=== PATIENT | female | born 1975 | race Two or more races ===

== ENCOUNTER 2025-01-03 16:41 | Inpatient (IN) | payer MEDICAID, SELFPAY ==
[2025-01-03 16:42] VITALS: BMI 22.6
[2025-01-03 18:24] VITALS: BP 100/65; PULSE 102; RESP 18; TEMP 36.6; O2SAT 99; BMI 22.6
--- NOTE | 2025-01-03 18:32 | XR_ITS ---
Examination: Foot, left, 3 views Technique: AP, oblique, lateral views foot, 3 views Date and time of exam: 1906 hours INDICATIONS: Left foot redness swelling and pain beginning 3 days ago FINDINGS: Soft tissue swelling adjacent to the first metatarsophalangeal joint No fracture or No chyna cortical bone destruction IMPRESSION: No chyna cortical bone destruction Consider MRI foot without contrast follow up, as clinically warranted
--- NOTE | 2025-01-03 18:33 | EDRME_ITS ---
Rapid Medical Screening Exam [facility] Arrival date/time: 01/03/25 16:41 49F with history of drug use and DM presents to ED with worsening L foot wound that popped 2 days ago. Chief Complaint: Extremity Injury, Lower Vital signs: Vital Signs Temperature 97.9 F 01/03/25 18:24 Pulse Rate 102 H 01/03/25 18:24 Respiratory Rate 18 01/03/25 18:24 Blood Pressure 100/65 01/03/25 18:24 Pulse Oximetry (%) 99 01/03/25 18:24 Oxygen Delivery Method Room Air 01/03/25 18:24
[2025-01-03 19:11] LABS: Basophils % (Auto) 0 % (0-2.5); Eosinophils # (Auto) 0.1 Thou/mm3 (0.0-0.5); Eosinophils % (Auto) 1 % (0-10); Hemoglobin 15.4 g/dL (12.0-16.0); Immature Granulocytes % (Auto) 0 % (0-0); Immature Granulocytes Auto 0.04 Thou/mm3 (0.00-0.00); Lymphocytes # (Auto) 2.9 Thou/mm3 (1.0-4.8); Lymphocytes % (Auto) 24 % (10-50); Mean Corpuscular Hemoglobin 30.6 pg (25.0-35.0); Mean Corpuscular Volume 88 fL (80-100); Monocytes # (Auto) 0.9 Thou/mm3 (0.0-0.8); Monocytes % (Auto) 8 % (0-12); Neutrophils # (Auto) 8.1 Thou/mm3 (1.8-7.7); Neutrophils % (Auto) 67 % (37-80); Nucleated Red Blood Cell % 0 /100 WBC (0); Platelet Count 261 Thou/mm3 (140-440); RDW Standard Deviation 41.7 fL (36.4-46.3); Red Blood Count 5.03 Miln/mm3 (4.00-5.20); White Blood Count 12.1 Thou/mm3 (3.6-11.0)
[2025-01-03 19:52] LABS: Alanine Aminotransferase 8 U/L (10-49); Albumin, Serum 4.1 gm/dL (3.5-5.0); Albumin/Globulin Ratio 1.1 (1.2-2.2); Alkaline Phosphatase 137 U/L (46-116); Anion Gap 10 (7-16); Aspartate Amino Transferase 10 U/L (0-34); BUN/Creatinine Ratio 14 Ratio (12-20); Bilirubin,Total 0.4 mg/dL (0.3-1.2); Blood Urea Nitrogen 17 mg/dL (9-23); C-Reactive Protein 7.7 mg/dL (0.0-0.9); Calcium 9.4 mg/dL (8.3-10.6); Calcium (Corrected) 9.4 mg/dL (8.5-10.1); Carbon Dioxide 27.2 mMol/L (20.0-31.0); Chloride 90 mMol/L (98-107); Creatinine (Component) 1.2 mg/dL (0.6-1.3); Estimated Creatinine Clearance 48.4 mL/min (>60); Globulin 3.9 gm/dL (2.3-3.5); Osmolality,Calculated 286 (275-295); Potassium 4.8 mMol/L (3.4-5.1); Sed Rate (ESR) 109 mm/hr (0-30); Sodium 127 mMol/L (136-145); eGFR 55 See Note
[2025-01-03 19:53] LABS: Glucose 637 mg/dL (74-106)
[2025-01-03 20:25] VITALS: BP 136/98; PULSE 102; RESP 17; TEMP 36.6; O2SAT 99
--- NOTE | 2025-01-03 20:34 | EKG_ITS ---
[facility] Test Date: 2025-01-03 Pat Name: MANE MAYS Department: Room: - Gender: Female [employer] Head: : 1975 Requested By: Hailee Sandoval Order Number: [id number] Reading MD: Hailee Sandoval Measurements Intervals [place] Rate: 102 P: 34 ID: 128 QRS: 32 QRSD: 89 T: 54 QT: 343 QTc: 447 Interpretive Statements SINUS TACHYCARDIA POSSIBLE LEFT ATRIAL ENLARGEMENT [-0.1mV P-WAVE IN V1/V2] ABNORMAL RHYTHM ECG Compared to ECG 03/13/2023 07:28:48 Myocardial infarct finding no longer present /[id number].pdf
--- NOTE | 2025-01-03 20:34 | XR_ITS ---
Examination: PA lateral chest 2 views TECHNIQUE: Upright PA and lateral chest 2 views Exam date and time: January 03, 20252047 hours INDICATIONS: Diabetic ketoacidosis FINDINGS: Normal heart size Minor linear scarring left base No pneumonia or pulmonary edema Moderate diffuse thoracic lumbar degenerative disc disease IMPRESSION: No pneumonia or pulmonary edema
[2025-01-03] MEDS: RINGERS LACTATED 1000 ML 1,641 ML 1641 ML IV (21:03)
[2025-01-03] MEDS: PIPER/TAZO 3.375 GM PREMIX 3.375 GM/50 ML BAG IV (21:04)
[2025-01-03 21:06] LABS: Allen Test Performed/OK; Base Excess -1 (-3-3); HCO3 24 mEq/L (20-26); Inspired Oxygen, FIO2 21 %; O2 Saturation 94 % (91-98); PCO2 37 mmHg (32.0-48.0); PO2 67 mmHg (83-108); Puncture Site Left Radial; pH, Arterial 7.41 (7.35-7.45)
[2025-01-03] MEDS: INSULIN HUM REGULAR 1 UNIT/0.01 ML (PER UNIT) 10 UNIT IV (21:08)
[2025-01-03 21:13] LABS: B-Type Natriuretic Peptide < 20 pg/mL (0-100)
[2025-01-03 21:18] LABS: Beta Hydroxybutyrate 0.2 mmol/L (<0.6)
[2025-01-03 21:19] LABS: Lactate (Lactic Acid) 4.2 mMol/L (0.4-2.0)
[2025-01-03 21:28] LABS: Collection Type, Urine Clean Catch; RBC,Urine 0 /hpf (0-3); WBC,Urine 0 /hpf (0-5)
[2025-01-03 21:29] LABS: Partial Thromboplastin Time 25.4 Seconds (22.0-36.0)
[2025-01-03] MEDS: VANCOMYCIN in NS 1 GM/200 ML BAG IV (21:31)
[2025-01-03 21:37] LABS: Lipase 31 U/L (12-53); Magnesium 1.7 mg/dL (1.6-2.6); Troponin I < 0.002 ng/mL (0.0-0.045)
[2025-01-03 21:39] LABS: Bacteria,Urine Rare; Bilirubin,Urine Negative (Negative); Blood,Urine Negative (Negative); Clarity,Urine Clear (Clear/Hazy); Color,Urine Lt-Yellow (Lt Yel-Yel); Glucose, Urine 4+ (Negative); Ketones,Urine Negative (Negative); Leukocyte Esterase,Urine Negative (Negative); Nitrite,Urine Negative (Negative); Protein,Urine Trace (Neg - Trace); Specific Gravity,Urine 1.027 (1.001-1.035); Squamous Epithelial Cell,Urine 3 /hpf (0-5); Urobilinogen,Urine Negative mg/dL (0.0-1.0)
[2025-01-03 21:40] VITALS: PULSE 105
--- NOTE | 2025-01-03 22:16 | XR_ITS ---
Examination: CTA lower extremities with intravenous contrast 2-D reconstructions 3-D reconstructions, vascular Date and time of exam: January 04, 2025 0459 hours INDICATION: Redness swelling and pain involving the left foot and ankle beginning 4 days ago CTDI: vol (mGy) 1.79 DLP: (mGycm) 90.5 Technique: Multiple axial sections of the lower extremities, ankle and feet 2-D sagittal and coronal reconstructions. 3-D angiographic renderings, 3-D volume renderings, 3D post processing, vascular maximum intensity projections obtained. Contrast administered is 100 cc Isovue 370. Low dose protocols were performed. One or more of the following dose reduction techniques were used; automated exposure control, adjustment of the mA and/or KV according to patient size, use of iterative reconstruction technique. Findings: Very poor contrast opacification of the trifurcation arteries, which are heavily calcified. No chyna cortical bone destruction Edema surrounding the ankle and foot bilaterally greater on the left side No soft tissue abscess IMPRESSION: Severely limited study as above Consider repeat CTA abdominal aorta iliofemoral runoff with proper contrast bolus timing, also consider arterial Doppler lower extremities follow up
[2025-01-03 22:26] LABS: LDH (Lactate Dehydrogenase) 149 U/L (120-246); Procalcitonin 0.17 ng/ml (0.0-0.49)
[2025-01-03 22:44] VITALS: BP 136/95; PULSE 99; RESP 18; TEMP 36.7; O2SAT 97
[2025-01-04] VITALS (8 sets, daily range): BP systolic 114–128; BP diastolic 73–82; PULSE 71–99; RESP 16–96; TEMP 36.3–37.4; O2SAT 93–98; BMI 22.1
[2025-01-04 00:06] LABS: Reflex Lactate? Y
--- NOTE | 2025-01-04 00:55 | EDNOTE_ITS ---
ED General RME/HPI General Chief complaint: Extremity Injury, Lower Stated complaint: Left toe swelling, Hx: DM Time Seen by Provider: 01/03/25 19:41 Arrival date/time: 01/03/25 16:41 49 year old female with a past medical history of diabetes and drug abuse presents to the ED with a complaint of left foot swelling, redness, pain and left second toe wound. She states the left second toe was rubbing on her Vance tennis shoes. She is a known diabetic but has been noncompliant with medications for at least 2 years. She indicates she was having a hard time coping with the loss of multiple family members including her youngest son. She denies any fever or chills, nausea or vomiting, diarrhea or abdominal pain. She does have a history of diabetic neuropathy. Mode of arrival: ambulatory Limitations: no limitations RME / HPI RME / HPI narrative: 01/03/25 16:41 49F with history of drug use and DM presents to ED with worsening L foot wound that popped 2 days ago. Related Data Previous Rx's ?Medication ?Instructions ?Recorded atorvastatin 40 mg tablet 40 mg PO QPM #30 tabs blood-glucose meter,continuous #1 ea 01/07/25 (FreeStyle Fabien 3 Coleman) blood-glucose sensor (FreeStyle #2 ea 01/07/25 Fabien 3 Plus Sensor device) clopidogrel 75 mg tablet (Plavix) 75 mg PO QDAY 30 day s #30 tabs 01/07/25 insulin glargine 100 unit/mL (3 15 unit (0.15 mL) subc ut QPM 30 01/07/25 mL) subcutaneous pen days #4.5 mL insulin lispro 100 unit/mL 5 unit (0.05 mL) subcut TID 30 01/07/25 subcutaneous pen days #4.5 mL Allergies Allergy/AdvReac Type Severity Reaction Status Date / Time No Known Allergies Allergy Verified 01/05/25 15:36 Review of Systems Review of Systems Systems Reviewed: All systems reviewed, normal except as documented Past Medical History Past Medical History CARDIAC: Positive Hypertension; Negative Cardiac Disorders or Congestive Heart Failure RESPIRATORY: Negative Chronic Obstructive Pulmonary Disease (COPD) or Asthma GENITOURINARY: Negative Renal Disease ENDOCRINE: Positive Diabetes Mellitus Type 2; Negative Diabetes Mellitus Type 1 HEMATOLOGIC: Negative Sickle Cell Disease Social History SMOKING STATUS: Never smoker ED Exam General Limitations: Present no limitations General appearance: Present alert and in no apparent distress Head Head exam: Present atraumatic and normocephalic Eye Eye exam: Absent conjunctival injection ENT ENT exam: Present other (Edentulous) Neck Neck exam: Present normal inspection and trachea midline Chest Chest inspection: Present normal inspection and symmetric chest wall rise Respiratory Respiratory exam: Present normal lung sounds bilaterally; Absent respiratory distress Cardiovascular Cardiovascular exam: Present regular rate, normal rhythm, +S1 and +S2 Abdominal Exam Abdominal exam: Present soft and normal bowel sounds; Absent tenderness, guarding or rebound Rectal Exam Rectal exam: Present deferred Expanded Lower Extremity Exam Upper leg exam: Present normal inspection; Absent tenderness or swelling Knee exam: Present normal inspection and full ROM; Absent tenderness Lower leg exam: Present normal inspection; Absent tenderness Ankle exam: Present normal inspection; Absent tenderness Foot/toe exam: Present tenderness, swelling, erythema and other (Cellulitic type rash noted to the dorsal surface of the left foot with losing wound to the dorsal aspect of the left second toe. Discoloration noted with dusky appearance. Decreased range of motion secondary to pain and swelling. No foul odor noted.) Neurovascular/Tendon exam: Present sensory deficit; Absent motor deficit Back Exam Back exam: Present normal inspection; Absent tenderness, CVA tenderness (R) or CVA tenderness (L) Neurological Exam Neurological exam: Present alert and oriented X3 Skin Skin exam: Present warm, dry, rash, cyanosis and erythema Course Quality Measures Possible source: skin/soft tissue and wound Blood cultures ordered: yes Antibiotic ordered: Yes Pertinent labs: 01/03/25 01/04/25 20:58 00:34 Lactic Acid 4.2 H* mMol/L 1.0 mMol/L (0.4-2.0) (0.4-2.0) Procalcitonin 0.17 ng/ml (0.0-0.49) sepsis Orders Category Date Time Status CT Screening NOW Care 01/03/25 22:17 Completed Surgical Supplies Sterilizer STAT Care 01/03/25 20:34 Completed Continuous Pulse Oximetry STAT Care 01/03/25 20:34 Completed Decision to Admit X1 Care 01/04/25 00:59 Completed EKG (ED ONLY) *Do not use* NOW Care 01/03/25 20:34 Completed In and Out Catheter X1PRN Care 01/03/25 20:34 Completed Insert IV NOW Care 01/03/25 20:34 Completed NPO STAT Care 01/03/25 20:34 Completed Strict Intake and Output Routine Care 01/03/25 20:[address] angio LE LT Stat Exams 01/03/25 22:16 Completed EKG (ED Only) Stat Exams 01/03/25 20:34 Draft XR chest 2V Stat Exams 01/03/25 20:34 Completed XR foot comp LT min 3V Stat Exams 01/03/25 18:32 Completed Acetone [Beta Hydroxybutyrate] Stat Lab 01/03/25 20:58 Completed Arterial Blood Gas Stat Lab 01/03/25 21:00 Completed B-Type Natriuretic Peptide Stat Lab 01/03/25 18:47 Completed Blood Culture (Lab) Stat Lab 01/03/25 20:58 Completed CBC Stat Lab 01/03/25 18:47 Completed CMP [Comprehensive Metabolic Panel] Stat Lab 01/03/25 18:47 Completed CRP [C-Reactive Protein] Stat Lab 01/03/25 18:47 Completed ESR [Sed Rate (ESR)] Stat Lab 01/03/25 18:47 Completed LDH (Lactate Dehydrogenase) Stat Lab 01/03/25 20:58 Completed Lactate (Lactic Acid) Stat Lab 01/03/25 20:58 Completed Lactic Acid, 3 HR Stat Lab 01/04/25 00:34 Completed Lipase Stat Lab 01/03/25 20:58 Completed Magnesium Stat Lab 01/03/25 20:58 Completed Partial Thromboplastin Time Stat Lab 01/03/25 18:47 Completed Phosphorous Stat Lab 01/03/25 20:58 Completed Procalcitonin Stat Lab 01/03/25 20:58 Completed Prothrombin Time with INR Stat Lab 01/03/25 18:47 Completed Troponin I Stat Lab 01/03/25 20:58 Completed Urinalysis Stat Lab 01/03/25 21:21 Completed Urine Culture Stat Lab 01/03/25 21:21 Completed Wound Culture and Gram Stain Stat Lab 01/03/25 20:58 Completed Insulin Regular Med 01/03/25 20:53 Discontinued 10 unit IV X1 ONE Ondansetron Inj [Zofran Inj] Med 01/03/25 20:33 Discontinued 4 mg IV Q6HR PRN Piper/Tazo 3.375 gm Premix [Zosyn] Med 01/03/25 20:33 Discontinued 3.375 gm in 50 ml IV X1 Ringers Lactated 1000 ml [Lactated Ringers] 1,641 ml Med 01/03/25 20:33 Discontinued IV 1,641 mls/hr Vancomycin Pharmacy to Dose Med 01/04/25 09:00 Discontinued 1 each IV QDAY PRN Vancomycin/Ns 1 gm Ivpb Med 01/03/25 21:00 Discontinued 1 gm IV X1 ONE Oxygen Delivery NOW RT 01/03/25 20:34 Completed Vital Signs Vital signs: Vital Signs Temperature 97.9 F 01/03/25 18:24 Pulse Rate 102 H 01/03/25 18:24 Respiratory Rate 18 01/03/25 18:24 Blood Pressure 100/65 01/03/25 18:24 Pulse Oximetry (%) 99 01/03/25 18:24 Oxygen Delivery Method Room Air 01/03/25 18:24 [facility] Patient data External records reviewed:: None Clinical information provided by:: patient and family Social determinants that could affect healthcare access:: mental health Patient has the following chronic illnesses:: Hypertension, type 2 diabetes. How is presenting disease/condition affected by chronic disease/condition?: e xacerbated by Evaluation data The following diagnostics were reviewed and interpreted by me:: lab results, radiology exam(s) and EKG tracing(s) Lab and/or radiology exams considered but not ordered:: MRI Left Foot/Toes Interpretation Summary: FOOT XRAY: FINDINGS: Soft tissue swelling adjacent to the first metatarsophalangeal joint No fracture or No chyna cortical bone destruction IMPRESSION: No chyna cortical bone destruction Consider MRI foot without contrast follow up, as clinically warranted CXR: FINDINGS: Normal heart size Minor linear scarring left base No pneumonia or pulmonary edema Moderate diffuse thoracic lumbar degenerative disc disease IMPRESSION: No pneumonia or pulmonary edema Medications Medications considered but not ordered:: NONE Medication administrations:: Medication Administration History Discontinued Medications Acetaminophen (Acetaminophen 325 Mg Tablet) 650 mg PO Q6H PRN PRN Reason: Fever >100.3 or pain 1-3 Stop: 02/03/25 01:24 Last Admin: 01/06/25 21:27 Dose: 650 mg Documented By: CV Atorvastatin Calcium (Atorvastatin Calcium 20 Mg Tablet) 20 mg PO HS KATALINA Stop: 02/04/25 20:59 Last Admin: 01/06/25 21:26 Dose: 20 mg Documented By: Admin: 01/05/25 20:49 Dose: 20 mg Documented By: CV Clopidogrel Bisulfate (Clopidogrel Bisulfate 75 Mg Tablet) 75 mg PO QDAY [facility] Stop: 02/05/25 08:59 Last Admin: 01/07/25 08:50 Dose: 75 mg Documented By: Admin: 01/06/25 09:58 Dose: 75 mg Documented By: ASIYA Dextrose (Dextrose 50%-Water Inj 50 Ml Syringe) 25 ml IV Q15MIN PRN PRN Reason: BG 50-70 responsive npo pt Stop: 02/03/25 01:28 Dextrose (Dextrose 50%-Water Inj 50 Ml Syringe) 50 ml IV Q15MIN PRN PRN Reason: BG <50 OR BG <70 & pt unresponsive Stop: 02/03/25 01:28 Fentanyl Citrate (Fentanyl Cit Inj 50 Mcg/Ml Amp 2ml) 25 mcg IV Q5M PRN PRN Reason: PAIN SCALE 1-3 (mild Stop: 01/05/25 16:43 Glucagon (Glucagon Inj 1 Mg Vial) 1 mg IM Q15MIN PRN PRN Reason: BG <70, and no IV access Heparin Sodium (Porcine) (Heparin Sod Inj 5000 Unit/Ml Vial) 5,000 unit SC Q8HR [facility] Stop: 01/18/25 05:59 Last Admin: 01/07/25 05:27 Dose: 5,000 unit Documented By: GELA Co-signed By: JIMMY Admin: 01/06/25 21:26 Dose: 5,000 unit Documented By: GELA Co-signed By: MARISOL Admin: 01/06/25 14:02 Dose: 5,000 unit Documented By: ASIYA Co-signed By: RAVI Admin: 01/06/25 05:34 Dose: 5,000 unit Documented By: GELA Co-signed By: MADHAVI Admin: 01/05/25 22:18 Dose: 5,000 unit Documented By: GELA Co-signed By: MADHAVI Admin: 01/05/25 16:18 Dose: Not Given Documented By: KS Non-Admin Reason: Held for Procedure Admin: 01/05/25 05:43 Dose: 5,000 unit Documented By: RAYMOND Co-signed By: SOFIA Admin: 01/04/25 21:11 Dose: 5,000 unit Documented By: RAYMOND Co-signed By: SOFIA Admin: 01/04/25 15:28 Dose: 5,000 unit Documented By: BF Co-signed By: VIKRAM Admin: 01/04/25 05:59 Dose: 5,000 unit Documented By: Co-signed By: MOHSEN Hydromorphone HCl (Hydromorphone Inj 2 Mg/Ml Vial) 0.4 mg IV Q5M PRN PRN Reason: PAIN SCALE 7-10 (Severe Stop: 01/05/25 16:44 Lactated Ringer's (Lactated Ringers) 1,641 mls @ 1,641 mls/hr 30 ml/kg infuse over 60 min (1641 ml) IV .Q1H ONE Stop: 01/03/25 21:32 Last Infusion: 01/03/25 23:42 Dose: Infused Documented By: Admin: 01/03/25 21:03 Dose: 1,641 mls/hr Documented By: MAX Piperacillin/Tazobactam/Dextrose (Zosyn) 3.375 gm in 50 mls @ 100 mls/hr IV X1 ONE Stop: 01/03/25 21:02 Last Infusion: 01/03/25 23:42 Dose: Infused Documented By: Admin: 01/03/25 21:04 Dose: 100 mls/hr Documented By: MAX Piperacillin/Tazobactam/Dextrose (Zosyn) 3.375 gm in 50 mls @ 12.5 mls/hr IV Q8HR [facility]; Protocol Stop: 01/11/25 06:59 Last Admin: 01/07/25 05:27 Dose: 12.5 mls/hr Documented By: Infusion: 01/07/25 01:26 Dose: Infused Documented By: Admin: 01/06/25 21:26 Dose: 12.5 mls/hr Documented By: Infusion: 01/06/25 18:01 Dose: Infused Documented By: Admin: 01/06/25 14:01 Dose: 12.5 mls/hr Documented By: Infusion: 01/06/25 09:34 Dose: Infused Documented By: Admin: 01/06/25 05:34 Dose: 12.5 mls/hr Documented By: Infusion: 01/06/25 02:19 Dose: Infused Documented By: Admin: 01/05/25 22:19 Dose: 12.5 mls/hr Documented By: Infusion: 01/05/25 20:40 Dose: Infused Documented By: Admin: 01/05/25 16:40 Dose: 12.5 mls/hr Documented By: DRE Comments: patient in surgery Infusion: 01/05/25 09:39 Dose: Infused Documented By: Admin: 01/05/25 05:39 Dose: 12.5 mls/hr Documented By: Infusion: 01/05/25 01:01 Dose: Infused Documented By: Admin: 01/04/25 21:01 Dose: 12.5 mls/hr Documented By: Infusion: 01/04/25 19:22 Dose: Infused Documented By: Admin: 01/04/25 15:22 Dose: 12.5 mls/hr Documented By: Infusion: 01/04/25 11:39 Dose: Infused Documented By: Admin: 01/04/25 07:39 Dose: 12.5 mls/hr Documented By: RO Vancomycin/Sodium Chloride (Vancomycin/Ns 500 Mg Ivpb) 100 mls @ 120 mls/hr IV Q12HR@1000,2200 [facility] Stop: 01/11/25 09:59 Last Admin: 01/04/25 21:03 Dose: 120 mls/hr Documented By: Infusion: 01/04/25 11:41 Dose: Infused Documented By: Admin: 01/04/25 10:51 Dose: 120 mls/hr Documented By: RO Magnesium Sulfate (Magnesium Sulfate Ivpb) 4 gm in 50 mls @ 12.5 mls/hr IV X1 ONE Stop: 01/04/25 12:11 Last Admin: 01/04/25 09:10 Dose: 12.5 mls/hr Documented By: RO Vancomycin/Sodium Chloride (Vancomycin/Ns 750 Mg Ivpb) 750 mg in 150 mls @ 120 mls/hr IV BID@1000,2200 KATALINA; Protocol Stop: 01/12/25 11:44 Last Admin: 01/06/25 23:45 Dose: 120 mls/hr Documented By: Infusion: 01/06/25 11:14 Dose: Infused Documented By: Admin: 01/06/25 09:59 Dose: 120 mls/hr Documented By: Infusion: 01/05/25 22:58 Dose: Infused Documented By: Admin: 01/05/25 21:43 Dose: 120 mls/hr Documented By: Infusion: 01/05/25 14:13 Dose: Infused Documented By: Admin: 01/05/25 12:58 Dose: 120 mls/hr Documented By: LEEANN Vancomycin/Sodium Chloride (Vancomycin/Ns 750 Mg Ivpb) 750 mg in 150 mls @ 120 mls/hr IV TID KATALINA; Protocol Stop: 01/14/25 06:29 Last Admin: 01/07/25 08:50 Dose: 120 mls/hr Documented By: RUY Comments: Late delivery from Pharmacy Magnesium Sulfate (Magnesium Sulfate Ivpb) 4 gm in 50 mls @ 12.5 mls/hr IV X1 ONE Stop: 01/07/25 12:47 Last Admin: 01/07/25 09:40 Dose: 12.5 mls/hr Documented By: RUY Insulin Glargine (Insulin Glargine (Lantus) 5 Unit/0.05 Ml (Per 5 Units)) 10 unit SC [facility] Stop: 02/03/25 20:59 Last Admin: 01/05/25 20:50 Dose: 10 unit Documented By: GELA Co-signed By: MADHAVI Admin: 01/04/25 21:09 Dose: 10 unit Documented By: RAYMOND Co-signed By: SOFIA Insulin Glargine (Insulin Glargine (Lantus) 5 Unit/0.05 Ml (Per 5 Units)) 15 unit SC HS [facility] Stop: 02/05/25 20:59 Last Admin: 01/06/25 21:26 Dose: 15 unit Documented By: GELA Co-signed By: MARISOL Insulin Human Lispro (Insulin Lispro (Admelog) 1 Unit/0.01 Ml Unit) 0 unit SC AC [facility]; Protocol Stop: 02/03/25 07:29 Last Admin: 01/07/25 11:42 Dose: 5 unit Documented By: CHAD Co-signed By: NEFTALY Admin: 01/07/25 07:36 Dose: 4 unit Documented By: RUY Co-signed By: RO Admin: 01/06/25 18:22 Dose: 4 unit Documented By: RO Co-signed By: KENDALL Admin: 01/06/25 12:35 Dose: 5 unit Documented By: RO Co-signed By: RUY Admin: 01/06/25 08:02 Dose: 5 unit Documented By: ASIYA Co-signed By: RAVI Admin: 01/05/25 17:37 Dose: Not Given Documented By: KS Non-Admin Reason: patient sleeping not hungry Admin: 01/05/25 11:11 Dose: Not Given Documented By: KS Non-Admin Reason: NPO Admin: 01/05/25 07:30 Dose: Not Given Documented By: KS Non-Admin Reason: NPO Admin: 01/04/25 17:42 Dose: 5 unit Documented By: RO Co-signed By: ALIN Admin: 01/04/25 12:11 Dose: 5 unit Documented By: RO Co-signed By: VIKRAM Admin: 01/04/25 08:11 Dose: 5 unit Documented By: RO Co-signed By: VIKRAM Insulin Human Regular (Insulin Hum Regular 1 Unit/0.01 Ml (Per Unit)) 10 unit IV X1 ONE Stop: 01/03/25 20:54 Last Admin: 01/03/25 21:08 Dose: 10 unit Documented By: MAX Co-signed By: JOE Midazolam HCl (Midazolam Inj 1 Mg/Ml Vial 2 Ml) Confirm Administered Dose 2 mg .ROUTE .STK-MED ONE Stop: 01/05/25 14:18 Morphine Sulfate (Morphine Sulf Inj 10 Mg/Ml Vial) 3 mg IV Q5M PRN PRN Reason: PAIN SCALE 4-6 (Moderate Stop: 01/05/25 16:44 Morphine Sulfate (Morphine Sulf Inj 10 Mg/Ml Vial) 2 mg IVP X1 ONE Stop: 01/06/25 14:23 Last Admin: 01/06/25 14:29 Dose: 2 mg Documented By: RO Ondansetron HCl (Ondansetron Inj 2 Mg/Ml Inj 2 Ml) 4 mg IV Q6HR PRN PRN Reason: NAUSEA OR VOMITING Stop: 02/02/25 20:32 Ondansetron HCl (Ondansetron Inj 2 Mg/Ml Inj 2 Ml) 4 mg IV X1 ONE Stop: 01/05/25 14:44 Pharmacy Consult (Vancomycin Pharmacy To Dose 1 Each Each) 1 each IV QDAY PRN PRN Reason: CONSULT Stop: 02/03/25 08:59 Propofol (Propofol Inj 10 Mg/Ml Vial 20 Ml) Confirm Administered Dose 200 mg IV .STK-MED ONE Stop: 01/05/25 14:18 Ropivacaine (Ropivacaine Inj 0.5% 5 Mg/Ml Amp 20 Ml) Confirm Administered Dose 100 mg .ROUTE .STK-MED ONE Stop: 01/05/25 14:18 Sennosides (Senna Tablet) 1 tab PO QDAY PRN; Protocol PRN Reason: constipation Stop: 02/03/25 01:24 Vancomycin/Sodium Chloride (Vancomycin In Ns 1 Gm/200 Ml Bag) 1 gm IV X1 ONE Stop: 01/03/25 21:01 Last Admin: 01/03/25 21:31 Dose: 1 gm Documented By: SF As noted above Consultations Consultation(s) initiated? (list below): Yes Consultation #1 (Physician, Specialty, Details): RESIDENT SERVICE AGREES TO ADMIT. Diagnosis Differential Diagnosis ED Complaint MDM: Diabetic ketoacidosis, hyperosmolar nonketotic, sepsis, gangrene, osteomyel Most likely diagnosis given after review of the tests above:: Hyperosmolar nonketotic, sepsis, cellulitis, concern for osteomyelitis. Admission Indicated Admission indicated?: indicated Explain why admission is indicated or not indicated:: Left second toe probable wet gangrene with possible osteomyelitis and hyperosmolar nonketotic Admission Request Was there a request for admission?: Yes Admission Attestation Admission request attestation: Discussed case with [] from Hospitalist service regarding admission. Discussed patients ED course, exam findings, labs, and radiology results. The Hospitalist [agrees,declines] to accept the patient for admission. Disposition Plan Disposition Plan: Admit Medical Decision Making MDM Narrative MDM Narrative: 49 year old female with a past medical history of diabetes and drug abuse presents to the ED with a complaint of left foot swelling, redness, pain and left second toe wound. She states the left second toe was rubbing on her Vance tennis shoes. She is a known diabetic but has been noncompliant with medications for at least 2 years. She indicates she was having a hard time coping with the loss of multiple family members including her youngest son. She denies any fever or chills, nausea or vomiting, diarrhea or abdominal pain. She does have a history of diabetic neuropathy. On exam, 49-year-old female appears disheveled and mildly toxic. She is afebrile and mildly tachycardic at 102 with a blood pressure of 100/65. Exam reveals left foot swelling, erythema, warmth, tenderness to the dorsal aspect as well of left second toe oozing wound with discoloration and possible wet gangrene. CBC reveals an elevated white count of 12.1 with elevated ANC of 8.1, lactic acid 4.2, procalcitonin 0.17, LDH 149, troponin less than 0.002, sed rate 109, CRP 7.7, ABG is essentially normal with the exception of a PaO2 of 67, CMP reveals sodium 127, chloride 90 creatinine 1.2 with normal osmolality of 286. Repeat lactic acid was 1.0 after sepsis fluids initiated. Initial glucose of 637, again she was given sepsis fluids as well as 10 units of insulin IV. Repeat blood sugar 299. Left foot x-rays reveal no obvious cortical disruption of the left second toe. A CT of the left foot was ordered and is currently pending. MRI is currently unavailable at this time. Chest x-ray, no acute process. She was given sepsis fluids as well as Zosyn 3.375 and vancomycin (pharmacy to dose). Differential Diagnosis Differential Diagnosis: Diabetic ketoacidosis, hyperosmolar nonketotic, sepsis, gangrene, osteomyel Lab Data Lab results reviewed: Yes I reviewed the patient's lab results. Lab results narrative: CBC reveals an elevated white count of 12.1 with elevated ANC of 8.1, lactic acid 4.2, procalcitonin 0.17, LDH 149, troponin less than 0.002, sed rate 109, CRP 7.7, ABG is essentially normal with the exception of a PaO2 of 67, CMP reveals sodium 127, chloride 90 creatinine 1.2 with normal osmolality of 286. Repeat lactic acid was 1.0 after sepsis fluids initiated. Initial glucose of 637, again she was given sepsis fluids as well as 10 units of insulin IV. Repeat blood sugar 299. 01/06/25 04:07 01/06/25 04:07 Labs: Lab Results 01/03/25 01/03/25 01/03/25 Range/Units 18:47 20:58 21:00 WBC 12.1 H (3.6-11.0) Thou/mm3 RBC 5.03 (4.00-5.20) Miln/mm3 Hgb 15.4 (12.0-16.0) g/dL Hct 44.0 (36.0-46.0) % MCV 88 (80-100) fL MCH 30.6 (25.0-35.0) pg MCHC 35.0 (31.0-37.0) g/dl RDW Std Deviation 41.7 (36.4-46.3) fL Plt Count 261 (140-440) Thou/mm3 Neut % (Auto) 67 (37-80) % Lymph % (Auto) 24 (10-50) % Frederick % (Auto) 8 (0-12) % Eos % (Auto) 1 (0-10) % Baso % (Auto) 0 (0-2.5) % Neut # (Auto) 8.1 H (1.8-7.7) Thou/mm3 Lymph # (Auto) 2.9 (1.0-4.8) Thou/mm3 Frederick # (Auto) 0.9 H (0.0-0.8) Thou/mm3 Eos # (Auto) 0.1 (0.0-0.5) Thou/mm3 Baso # (Auto) 0.0 (0.0-0.2) Thou/mm3 Immature Gran # (Auto) 0.04 H (0.00-0.00) Thou/mm3 Absolute Nucleated RBC 0.00 (0.00-0.00) Thou/mm3 Immature Gran % 0 (0-0) % Nucleated RBC % 0 (0) /100 WBC ESR 109 H (0-30) mm/hr PT 10.0 (9.0-12.2) Seconds INR 1.0 (0.9-1.3) APTT 25.4 (22.0-36.0) Seconds Puncture Site Left Radial ABG pH 7.41 (7.35-7.45) ABG pCO2 37 (32.0-48.0) mmHg ABG pO2 67 L (83-108) mmHg ABG HCO3 24 (20-26) mEq/L ABG O2 Saturation 94 (91-98) % ABG Base Excess -1 (-3-3) FiO2 21 % Sodium 127 L (136-145) mMol/L Potassium 4.8 (3.4-5.1) mMol/L Chloride 90 L (98-107) mMol/L Carbon Dioxide 27.2 (20.0-31.0) mMol/L Anion Gap 10 (7-16) BUN 17 (9-23) mg/dL Creatinine 1.2 (0.6-1.3) mg/dL Estim Creat Clear Calc 48.4 L (>60) mL/min eGFR 55 L (60 - ) See Note BUN/Creatinine Ratio 14 (12-20) Ratio Glucose 637 H* (74-106) mg/dL Calculated Osmolality 286 (275-295) Lactic Acid 4.2 H* (0.4-2.0) mMol/L Calcium 9.4 (8.3-10.6) mg/dL Corrected Calcium 9.4 (8.5-10.1) mg/dL Phosphorus 4.0 (2.4-5.1) mg/dL Magnesium 1.7 (1.6-2.6) mg/dL Total Bilirubin 0.4 (0.3-1.2) mg/dL AST 10 (0-34) U/L ALT 8 L (10-49) U/L Alkaline Phosphatase 137 H (46-116) U/L Lactate Dehydrogenase 149 (120-246) U/L Troponin I < 0.002 (0.0-0.045) ng/mL C-Reactive Prot, Quant 7.7 H (0.0-0.9) mg/dL B-Natriuretic Peptide < 20 (0-100) pg/mL Total Protein 8.0 (5.7-8.2) gm/dL Albumin 4.1 (3.5-5.0) gm/dL Globulin 3.9 H (2.3-3.5) gm/dL Albumin/Globulin Ratio 1.1 L (1.2-2.2) Triglycerides (30-150) mg/dL Cholesterol (132-200) mg/dL LDL Cholesterol, Calc (0-130) mg/dL HDL Cholesterol (40-60) mg/dL Cholesterol/HDL Ratio (3.7-5.6) RATIO Lipase 31 (12-53) U/L Beta-Hydroxybutyrate/Acetoacetate 0.2 (<0.6) mmol/L Procalcitonin 0.17 (0.0-0.49) ng/ml HCG, Qual Ur Collection Type Urine Color (Lt Yel-Yel) Urine Clarity (Clear/Hazy) Urine pH (5.0-7.0) Ur Specific [place] (1.001-1.035) Urine Protein (Neg - Trace) Urine Glucose (UA) (Negative) Urine Ketones (Negative) Urine Blood (Negative) Urine Nitrite (Negative) Urine Bilirubin (Negative) Urine Urobilinogen (Auto) (0.0-1.0) mg/dL Ur Leukocyte Esterase (Negative) Urine RBC (0-3) /hpf Urine WBC (0-5) /hpf Ur Squamous Epith Cells (0-5) /hpf Urine Bacteria (None) Urine Opiates Screen (Negative) Urine Fentanyl Screen (Negative) Ur Barbiturates Screen (Negative) U Amphetamin/Meth Scrn (Negative) U Benzodiazepines Scrn (Negative) U Cocaine Metab Screen (Negative) U Marijuana (THC) Screen (Negative) 01/03/25 01/04/25 01/04/25 Range/Units 21:21 00:00 00:34 WBC (3.6-11.0) Thou/mm3 RBC (4.00-5.20) Miln/mm3 Hgb (12.0-16.0) g/dL Hct (36.0-46.0) % MCV (80-100) fL MCH (25.0-35.0) pg MCHC (31.0-37.0) g/dl RDW Std Deviation (36.4-46.3) fL Plt Count (140-440) Thou/mm3 Neut % (Auto) (37-80) % Lymph % (Auto) (10-50) % Frederick % (Auto) (0-12) % Eos % (Auto) (0-10) % Baso % (Auto) (0-2.5) % Neut # (Auto) (1.8-7.7) Thou/mm3 Lymph # (Auto) (1.0-4.8) Thou/mm3 Frederick # (Auto) (0.0-0.8) Thou/mm3 Eos # (Auto) (0.0-0.5) Thou/mm3 Baso # (Auto) (0.0-0.2) Thou/mm3 Immature Gran # (Auto) (0.00-0.00) Thou/mm3 Absolute Nucleated RBC (0.00-0.00) Thou/mm3 Immature Gran % (0-0) % Nucleated RBC % (0) /100 WBC ESR (0-30) mm/hr PT (9.0-12.2) Seconds INR (0.9-1.3) APTT (22.0-36.0) Seconds Puncture Site ABG pH (7.35-7.45) ABG pCO2 (32.0-48.0) mmHg ABG pO2 (83-108) mmHg ABG HCO3 (20-26) mEq/L ABG O2 Saturation (91-98) % ABG Base Excess (-3-3) FiO2 % Sodium (136-145) mMol/L Potassium (3.4-5.1) mMol/L Chloride (98-107) mMol/L Carbon Dioxide (20.0-31.0) mMol/L Anion Gap (7-16) BUN (9-23) mg/dL Creatinine (0.6-1.3) mg/dL Estim Creat Clear Calc (>60) mL/min eGFR (60 - ) See Note BUN/Creatinine Ratio (12-20) Ratio Glucose (74-106) mg/dL Calculated Osmolality (275-295) Lactic Acid 1.0 (0.4-2.0) mMol/L Calcium (8.3-10.6) mg/dL Corrected Calcium (8.5-10.1) mg/dL Phosphorus (2.4-5.1) mg/dL Magnesium (1.6-2.6) mg/dL Total Bilirubin (0.3-1.2) mg/dL AST (0-34) U/L ALT (10-49) U/L Alkaline Phosphatase (46-116) U/L Lactate Dehydrogenase (120-246) U/L Troponin I (0.0-0.045) ng/mL C-Reactive Prot, Quant (0.0-0.9) mg/dL B-Natriuretic Peptide (0-100) pg/mL Total Protein (5.7-8.2) gm/dL Albumin (3.5-5.0) gm/dL Globulin (2.3-3.5) gm/dL Albumin/Globulin Ratio (1.2-2.2) Triglycerides 211 H (30-150) mg/dL Cholesterol 174 (132-200) mg/dL LDL Cholesterol, Calc 91 (0-130) mg/dL HDL Cholesterol 41 (40-60) mg/dL Cholesterol/HDL Ratio 4.2 (3.7-5.6) RATIO Lipase (12-53) U/L Beta-Hydroxybutyrate/Acetoacetate (<0.6) mmol/L Procalcitonin (0.0-0.49) ng/ml HCG, Qual Negative Ur Collection Type Clean Catch Urine Color Lt-Yellow (Lt Yel-Yel) Urine Clarity Clear (Clear/Hazy) Urine pH 6.0 (5.0-7.0) Ur Specific [place] 1.027 (1.001-1.035) Urine Protein Trace (Neg - Trace) Urine Glucose (UA) 4+ A (Negative) Urine Ketones Negative (Negative) Urine Blood Negative (Negative) Urine Nitrite Negative (Negative) Urine Bilirubin Negative (Negative) Urine Urobilinogen (Auto) Negative (0.0-1.0) mg/dL Ur Leukocyte Esterase Negative (Negative) Urine RBC 0 (0-3) /hpf Urine WBC 0 (0-5) /hpf Ur Squamous Epith Cells 3 (0-5) /hpf Urine Bacteria Rare (None) Urine Opiates Screen Negative (Negative) Urine Fentanyl Screen Negative (Negative) Ur Barbiturates Screen Negative (Negative) U Amphetamin/Meth Scrn Positive A (Negative) U Benzodiazepines Scrn Negative (Negative) U Cocaine Metab Screen Negative (Negative) U Marijuana (THC) Screen Negative (Negative) Radiology Data Radiology results reviewed: Yes I reviewed the patient's radiology results. Radiology results narrative: Left foot x-rays reveal no obvious cortical disruption of the left second toe. A CT of the left foot was ordered and is currently pending. MRI is currently unavailable at this time. Chest x-ray, no acute process. Discharge Plan Plan Patient Disposition: Admit Acute Care w/in Hospital Disposition Comment: Stable and improved. Patient condition on transfer: Stable Problem List Clinical Impression: Diabetic foot, Hyperglycemia without ketosis, Hyperosmolar hyperglycemic state (HHS), Cellulitis Patient/Caregiver Discharge Instructions Discharge Activity: activity as tolerated Other Activity Instructions:: Take clindamycin 300 mg every 6 hours for 5 days to complete treatment for your infection. Continue atorvastatin and Plavix daily for peripheral arterial disease. Follow- up with vascular surgery. Take insulin Lantus 15 units every night and lispro 5 units 3 times a day with meals Follow-up with primary care physician in 1 week Follow-up with primary care physician in 1 week to optimize diabetes regimen. You can also follow-up in [facility] in 1 to 2 weeks. Call [phone] to make an appointment Address: [facility], [address], [address], [place], [address] Return to ED if symptoms return or worsen. Diet Instructions: Low carbohydrate diet PA/RN IMMUNOLOGY Supervising Physician PA/RN IMMUNOLOGY Supervising Physician: Dr Libia THOMAS Attestation Attestation I took over the care from MIRA Garcia at 11 PM on 01/03/25, see her note for complete H&P and ED course. Diagnoses include left foot cellulitis. I discussed the case with our hospitalist. About the presentation and exam and diagnostics and treatments here. And need of further care in the hospital. Will accept the patient. Brigido Reza MD
--- NOTE | 2025-01-04 01:39 | XR_ITS ---
Examination: Arterial duplex lower extremity study. Date and time of exam: January 04, 2025 0536 hours INDICATIONS: Left foot swelling beginning 2 days ago Findings: Duplex sonographic imaging of the lower extremity arteries using B-mode/Alberto scale imaging and Doppler spectral analysis and color flow. . Right common femoral artery demonstrates triphasic flow. Right superficial femoral artery demonstrates triphasic flow. Right popliteal artery demonstrates triphasic flow. Right posterior tibial artery demonstrated triphasic flow. Left common femoral artery demonstrates biphasic flow. Left superficial femoral artery demonstrates triphasic flow. Left popliteal artery demonstrates triphasic flow. Left posterior tibial artery demonstrated monophasic flow. Impression: Incomplete study No ankle-brachial indices, this patient should return for ankle brachial indices Left lower extremity peripheral obstructive arterial disease, recommend correlation with CTA abdominal aorta iliofemoral runoff post intravenous contrast
--- NOTE | 2025-01-04 01:50 | ESHP_ITS ---
Documentation for date of: 01/04/25 HPI History of Present Illness Chief complaint: left foot edema and erythema, pain History of present illness: The patient is a 49-year-old female with a previous medical history of type 2 diabetes, methamphetamine abuse who came to the ED due to left foot edema, erythema and pain. She states it started after she wore tight shoes and got the blister on the second toe due to the shoe rubbing on it. She denies fever, chills, shortness of breath, abdominal pain. ED course: Hemodynamically stable, afebrile, saturating well on room air, labs are significant for leukocytosis 12.1, sodium 127, chloride 90, EGFR 55, glucose 637, lactic acid 4.2, down trended to 1.0, C-reactive protein 7.7, beta hydroxybutyrate 0.2, procalcitonin 0.17. Foot x-ray was negative for chyna cortical bone destruction, showed soft tissue swelling at the first metatarsophalangeal joint. Chest x-ray was negative for pneumonia or pulmonary edema. EKG showed sinus tachycardia. Patient received bolus of lactated Ringer 30 mL/kg, Zosyn, insulin regular 10 units and 1 dose of vancomycin in the ED. Patient was admitted for left foot cellulitis due to diabetic foot infection. Social history: Denies smoking and drinking alcohol. Reports smoking meth, last use was a few days ago. Home medications: Denies taking medications Allergies: Denies Review of Systems Review of Systems Systems Reviewed: All systems reviewed, normal except as documented Past Medical History Past Medical History CARDIAC: Positive Hypertension; Negative Cardiac Disorders or Congestive Heart Failure RESPIRATORY: Negative Chronic Obstructive Pulmonary Disease (COPD) or Asthma GENITOURINARY: Negative Renal Disease ENDOCRINE: Positive Diabetes Mellitus Type 2; Negative Diabetes Mellitus Type 1 HEMATOLOGIC: Negative Sickle Cell Disease Social History SMOKING STATUS: Never smoker Exam Vital Signs Temp Pulse Resp BP Pulse Ox O2 Del Method 99.4 F 99 18 114/74 98 Room Air 01/04/25 01:46 01/04/25 01:46 01/04/25 01:46 01/04/25 01:46 01/04/25 01:46 01/04/25 01:46 Narrative Exam Physical Exam General: Awake and in no acute distress. Conversational and non-toxic appearing. Edentulous.. HEENT: Normocephalic, atraumatic, mucous membranes moist. Heart: Regular rate and rhythm, no murmurs. Lungs: Clear to auscultation with no wheezing or crackles. Abdomen: Soft, nondistended, nontender, positive bowel sounds. ?No guarding or rebound tenderness. Neurologic: Alert and oriented x3, no gross neurological deficit, and patient able to move all 4 extremities. Extremities: Erythema, edema on the dorsum of the left foot in the base of the toes. Superficial wound in the 2nd toe. Skin: No rash or ecchymoses. Results: Labs 01/03/25 18:47 01/03/25 18:47 Labs: Short CBC 01/03/25 Range/Units 18:47 WBC 12.1 H (3.6-11.0) Thou/mm3 Hgb 15.4 (12.0-16.0) g/dL Hct 44.0 (36.0-46.0) % Plt Count 261 (140-440) Thou/mm3 BMP 01/03/25 18:47 Sodium 127 L Potassium 4.8 Chloride 90 L Carbon Dioxide 27.2 BUN 17 Creatinine 1.2 Glucose 637 H* Calcium 9.4 Cardiac Enzymes 01/03/25 Range/Units 20:58 Troponin I < 0.002 (0.0-0.045) ng/mL Liver Function 01/03/25 Range/Units 18:47 Total Bilirubin 0.4 (0.3-1.2) mg/dL AST 10 (0-34) U/L ALT 8 L (10-49) U/L Alkaline Phosphatase 137 H (46-116) U/L Albumin 4.1 (3.5-5.0) gm/dL Urine 01/03/25 Range/Units 21:21 Urine Color Lt-Yellow (Lt Yel-Yel) Urine Clarity Clear (Clear/Hazy) Urine pH 6.0 (5.0-7.0) Ur Specific [place] 1.027 (1.001-1.035) Urine Protein Trace (Neg - Trace) Urine Glucose (UA) 4+ A (Negative) ABG Interpretation ABG results: 01/03/25 21:00 ABG pH 7.41 ABG pCO2 37 ABG pO2 67 L ABG HCO3 24 ABG O2 Saturation 94 ABG Base Excess -1 Quality Measures Quality Measures VTE prophylaxis Medications Home Medications and Allergies Allergies Allergy/AdvReac Type Severity Reaction Status Date / Time NKA* Allergy Uncoded 03/13/23 07:14 Visit Medications Acetaminophen (Acetaminophen 325 Mg Tablet) 650 mg PO Q6H PRN PRN Reason: Fever >100.3 or pain 1-3 Stop: 02/03/25 01:24 Dextrose (Dextrose 50%-Water Inj 50 Ml Syringe) 25 ml IV Q15MIN PRN PRN Reason: BG 50-70 responsive npo pt Stop: 02/03/25 01:28 Dextrose (Dextrose 50%-Water Inj 50 Ml Syringe) 50 ml IV Q15MIN PRN PRN Reason: BG <50 OR BG <70 & pt unresponsive Stop: 02/03/25 01:28 Glucagon (Glucagon Inj 1 Mg Vial) 1 mg IM Q15MIN PRN PRN Reason: BG <70, and no IV access Heparin Sodium (Porcine) (Heparin Sod Inj 5000 Unit/Ml Vial) 5,000 unit SC Q8HR KATALINA Stop: 01/18/25 05:59 Piperacillin Sod/Tazobactam (Sod 4.5 gm/ Sodium Chloride) 100 mls @ 200 mls/hr IV Q6HR KATALINA Stop: 01/11/25 01:40 Insulin Human Lispro (Insulin Lispro (Admelog) 1 Unit/0.01 Ml Unit) 0 unit SC AC KATALINA; Protocol Stop: 02/03/25 07:29 Ondansetron HCl (Ondansetron Inj 2 Mg/Ml Inj 2 Ml) 4 mg IV Q6HR PRN PRN Reason: NAUSEA OR VOMITING Stop: 02/02/25 20:32 Pharmacy Consult (Vancomycin Pharmacy To Dose 1 Each Each) 1 each IV QDAY KATALINA Stop: 02/03/25 08:59 Sennosides (Senna Tablet) 1 tab PO QDAY PRN; Protocol PRN Reason: constipation Stop: 02/03/25 01:24 Discontinued Medications Lactated Ringer's (Lactated Ringers) 1,641 mls @ 1,641 mls/hr 30 ml/kg infuse over 60 min (1641 ml) IV .Q1H ONE Stop: 01/03/25 21:32 Last Infusion: 01/03/25 23:42 Dose: Infused Piperacillin/Tazobactam/Dextrose (Zosyn) 3.375 gm in 50 mls @ 100 mls/hr IV X1 ONE Stop: 01/03/25 21:02 Last Infusion: 01/03/25 23:42 Dose: Infused Insulin Human Regular (Insulin Hum Regular 1 Unit/0.01 Ml (Per Unit)) 10 unit IV X1 ONE Stop: 01/03/25 20:54 Last Admin: 01/03/25 21:08 Dose: 10 unit Vancomycin/Sodium Chloride (Vancomycin In Ns 1 Gm/200 Ml Bag) 1 gm IV X1 ONE Stop: 01/03/25 21:01 Last Admin: 01/03/25 21:31 Dose: 1 gm Assessment & Plan Plan The patient is a 49-year-old female with a previous medical history of type 2 diabetes, methamphetamine abuse who came to the ED due to left foot edema, erythema and pain. Patient was admitted for left foot cellulitis due to diabetic foot infection. #Left foot cellulitis Patient had a trauma to her foot due to wearing tight shoes approximately 2 days ago. Plan: ?Vancomycin 4/5?current ? Zosyn 4/5?current ? Surgery consult ? Wound care referral ? Wound cultures ordered ? Blood cultures ordered #Type 2 diabetes Patient reports history of diabetes for 4 years, denies taking diabetes medications. On admission glucose level was 637, she received 10 units of insulin. Plan: ? Sliding scale insulin step 3 ? A1c ordered ? Hypoglycemia protocol, glucose checks ACHS #Pseudo hyponatremia Serum sodium is 127 with serum osmolality 286, most likely due to hyperglycemia induced water shift from intracellular extracellular space. Corrected serum sodium level approximately 137. Plan: ? Blood sugar control Health maintenance: FEN: carbohydrate consistent low DVT prophylaxis: heparin sc GI prophylaxis: none Dispo: med surg CODE STATUS: Full code Plan of care discussed with attending Dr. Remy. Kemi Paige MD, PGY 1. Attending Provider Attestation/Addendum Patient was seen and examined in ED 19. Patient has poorly controlled diabetes. She complains of left foot infection. Her left second toe is swollen and tender and erythematous. Some excoriation nicole. The patient was started on IV antibiotics in the ED. Arterial vascular study ultrasound was requested. She will be continued on IV antibiotics & possible surgical consultation in a.m. I supervised the medical record consultant.
[2025-01-04 01:54] LABS: Cardiac Risk Estimate 4.2 RATIO (3.7-5.6); Cholesterol 174 mg/dL (132-200); HDL Cholesterol 41 mg/dL (40-60); LDL Cholesterol,Calculated 91 mg/dL (0-130); Triglycerides 211 mg/dL (30-150)
[2025-01-04 02:22] LABS: Amphetamine/Methamp Scrn,U Positive (Negative); Barbiturate Screen,Urine Negative (Negative); Benzodiazepines Screen,Urine Negative (Negative); Benzoylecgonine Screen, Ur Negative (Negative); Fentanyl Screen,Urine Negative (Negative); Opiate Screen,Urine Negative (Negative); THC Screen,Urine Negative (Negative)
[2025-01-04 04:32] LABS: HCG,Qualitative Serum Negative
[2025-01-04] MEDS: HEPARIN SOD INJ 5000 UNIT/ML VIAL SC ×3 (05:59→21:11)
--- NOTE | 2025-01-04 06:19 | PRELIM_ITS ---
CT angiogram of the left lower extremity with intravenous contrast (axial sections with sagittal and coronal reformats) January 04, 2025 0459 hours Clinical History: Foot erythema edema calor pain necrosis Comparison: No prior study is available for comparison. Findings: The evaluation of arteries are limited due to a suboptimal bolus of contrast. Extensive calcifications of the posterior tibial artery. The osseous structures are unremarkable. The deep venous system of the left lower extremity is well-opacified to the extent visualized. Subcutaneous fat stranding of the left foot and distal calf. There is no fluid collection, free air or abscess. Impression: Limited arteries evaluation as described. Subcutaneous fat stranding of the left foot and distal calf, suggesting cellulitis. Recommend clinical correlation. Report Electronically Signed By: North Rodgers 01/04/2025 6:18:58 AM [EST]
[2025-01-04 06:48] LABS: Basophils % (Auto) 0 % (0-2.5); Eosinophils # (Auto) 0.1 Thou/mm3 (0.0-0.5); Eosinophils % (Auto) 1 % (0-10); Hematocrit 38.6 % (36.0-46.0); Hemoglobin 13.5 g/dL (12.0-16.0); Immature Granulocytes % (Auto) 0 % (0-0); Immature Granulocytes Auto 0.05 Thou/mm3 (0.00-0.00); Lymphocytes # (Auto) 3.6 Thou/mm3 (1.0-4.8); Lymphocytes % (Auto) 32 % (10-50); Mean Corpuscular Hemoglobin 30.3 pg (25.0-35.0); Mean Corpuscular Volume 87 fL (80-100); Monocytes # (Auto) 1.1 Thou/mm3 (0.0-0.8); Monocytes % (Auto) 9 % (0-12); Neutrophils # (Auto) 6.5 Thou/mm3 (1.8-7.7); Neutrophils % (Auto) 57 % (37-80); Nucleated Red Blood Cell % 0 /100 WBC (0); Platelet Count 244 Thou/mm3 (140-440); RDW Standard Deviation 40.7 fL (36.4-46.3); Red Blood Count 4.45 Miln/mm3 (4.00-5.20); White Blood Count 11.4 Thou/mm3 (3.6-11.0)
--- NOTE | 2025-01-04 06:56 | PRELIM_ITS ---
Bilateral lower extremity arterial Doppler ultrasound. January 04, 2025 at 0536 hours Clinical history: left foot swelling Comparison: CT Angio Ext Lower Left w/ contrast 01/04/2025 04:59 AM Findings: Alberto scale, color and spectral Doppler imaging of both lower extremity arteries were performed. Right: The common femoral, proximal, mid and distal (superficial) femoral and popliteal arteries demonstrate normal triphasic flow pattern, velocities and good color flow. No evidence of arterial occlusion or thrombus. The posterior tibial, peroneal and dorsalis pedis arteries are also unremarkable. Left: The common femoral, proximal, mid and distal (superficial) femoral and popliteal arteries demonstrate normal triphasic flow pattern, velocities and good color flow. The common femoral artery demonstrates biphasic flow pattern and good color flow. No evidence of arterial occlusion or thrombus. The peroneal, posterior tibial and dorsalis pedis arteries demonstrate monophasic flow pattern. Impression: No hemodynamically significant stenosis in both lower extremity arteries. Report Electronically Signed By: North Rodgers 01/04/2025 6:55:49 AM [EST]
[2025-01-04 07:20] LABS: Alanine Aminotransferase 8 U/L (10-49); Albumin, Serum 3.4 gm/dL (3.5-5.0); Albumin/Globulin Ratio 1.1 (1.2-2.2); Alkaline Phosphatase 105 U/L (46-116); Anion Gap 7 (7-16); Aspartate Amino Transferase 11 U/L (0-34); BUN/Creatinine Ratio 19 Ratio (12-20); Bilirubin,Total 0.4 mg/dL (0.3-1.2); Blood Urea Nitrogen 13 mg/dL (9-23); Calcium 8.8 mg/dL (8.3-10.6); Calcium (Corrected) 9.3 mg/dL (8.5-10.1); Carbon Dioxide 29.3 mMol/L (20.0-31.0); Chloride 98 mMol/L (98-107); Creatinine (Component) 0.7 mg/dL (0.6-1.3); Globulin 3.2 gm/dL (2.3-3.5); Glucose 280 mg/dL (74-106); Magnesium 1.4 mg/dL (1.6-2.6); Osmolality,Calculated 278 (275-295); Phosphorous 2.9 mg/dL (2.4-5.1); Potassium 4.2 mMol/L (3.4-5.1); Sodium 134 mMol/L (136-145); Total Protein 6.6 gm/dL (5.7-8.2); eGFR > 60 See Note
[2025-01-04] MEDS: PIPER/TAZO 3.375 GM PREMIX 3.375 GM/50 ML BAG IV ×3 (07:39→21:01)
[2025-01-04 07:52] LABS: Glucose Estimated Average 355 mg/dL (80-131); Hemoglobin A1C > 14.0 % Hgb (4.8-6.0)
[2025-01-04] MEDS: INSULIN LISPRO (AdmeLOG) 1 UNIT/0.01 ML UNIT SC ×3 (08:11→17:42)
[2025-01-04] MEDS: Magnesium Sulfate 4 GM Ivpb 4 GM/50 ML BAG IV (09:10)
--- NOTE | 2025-01-04 10:10 | PC.SS ---
Lilyra Morris is 49-year-old female admitted to Med-Surg for Foot Cellulitis. SS conducted bedside contact with the patient to complete initial assessment and to discuss discharge planning.? Patient confirmed demographic information. Patient identifies her lifdtr Laura Jackson [phone] as her surrogate decision maker. Patient resides at home with her family. Pt states she is able to complete all ADL?s independently, no DME needed. Pts PCP is Dr. Morris KARTIK (last visit over 1 year ago) and her pharmacy of choice is [facility]. DC options discussed and pt wishes to return home. Pts family will provide transportation upon DC. No further intervention required at this time, long term care social worker would be available to address any further concerns. DCPlan: Home Contact: Laura Braswell ? PCP: Arturo
[2025-01-04] MEDS: VANCOMYCIN/NS 500 MG IVPB 100 ML 120 MG IV ×2 (10:51→21:03)
--- NOTE | 2025-01-04 10:58 | ESPR_ITS ---
<Statement entered by Nick Velasquez MD - 01/04/25 18:11> I discussed with and supervised the internal control analyst physician involved in the care of this patient. Patient assessment and plan was discussed with entire medicine team, including my attending. I agree with the assessment and plan as documented by internal control analyst doctor. Patient care was discussed with my attending physician Dr. Aubrey Velasquez, PGY-2 Documentation for date of: 01/04/25 Subjective Subjective Interval history: Patient examined at bedside. Complains of left lower foot pain. Good appetite. Vitals are stable. Leukocytosis improving to 11.4, magnesium 1.4--repleated 4g. Gen surgery Dr. Garcia will evaluate patient for left foot cellulitis with wound. Continue with IV vancomycin + Zosyn TID. Start 10 units Glargine HS and continue SSI. Exam Vital Signs Temp Pulse Resp BP Pulse Ox O2 Del Method 97.6 F 95 16 114/73 93 L Room Air 01/04/25 07:58 01/04/25 09:37 01/04/25 09:37 01/04/25 07:58 01/04/25 07:58 01/04/25 07:58 Narrative Exam General: Mild agged female, Awake and in no acute distress. Conversational and non-toxic appearing. HEENT: Normocephalic, atraumatic, mucous membranes moist, no teeth Heart: Regular rate and rhythm, no murmurs. Lungs: Clear to auscultation with no wheezing or crackles. Abdomen: Soft, nondistended, nontender, positive bowel sounds. ?No guarding or rebound tenderness. Neurologic: Alert and oriented x3, no gross neurological deficit, and patient able to move all 4 extremities. Extremities: Erythema, edema on the dorsum of the left foot in the base of the toes. Superficial wound in the 2nd toe, pustular drainage Skin: No rash or ecchymoses. Objective Labs 01/05/25 04:52 01/05/25 04:52 Labs: Laboratory Results - last 24 hr 01/03/25 01/03/25 01/03/25 18:47 20:58 21:00 WBC 12.1 H RBC 5.03 Hgb 15.4 Hct 44.0 MCV 88 MCH 30.6 MCHC 35.0 RDW Std Deviation 41.7 Plt Count 261 Neut % (Auto) 67 Lymph % (Auto) 24 [place] % (Auto) 8 Eos % (Auto) 1 Baso % (Auto) 0 Neut # (Auto) 8.1 H Lymph # (Auto) 2.9 [place] # (Auto) 0.9 H Eos # (Auto) 0.1 Baso # (Auto) 0.0 Immature Gran # (Auto) 0.04 H Absolute Nucleated RBC 0.00 Immature Gran % 0 Nucleated RBC % 0 ESR 109 H PT 10.0 INR 1.0 APTT 25.4 Puncture Site Left Radial ABG pH 7.41 ABG pCO2 37 ABG pO2 67 L ABG HCO3 24 ABG O2 Saturation 94 ABG Base Excess -1 FiO2 21 Sodium 127 L Potassium 4.8 Chloride 90 L Carbon Dioxide 27.2 Anion Gap 10 BUN 17 Creatinine 1.2 Estim Creat Clear Calc 48.4 L eGFR 55 L BUN/Creatinine Ratio 14 Glucose 637 H* Estimated Ave Glu mg/dL Hemoglobin A1c Calculated Osmolality 286 Lactic Acid 4.2 H* Calcium 9.4 Corrected Calcium 9.4 Phosphorus 4.0 Magnesium 1.7 Total Bilirubin 0.4 AST 10 ALT 8 L Alkaline Phosphatase 137 H Lactate Dehydrogenase 149 Troponin I < 0.002 C-Reactive Prot, Quant 7.7 H B-Natriuretic Peptide < 20 Total Protein 8.0 Albumin 4.1 Globulin 3.9 H Albumin/Globulin Ratio 1.1 L Triglycerides Cholesterol LDL Cholesterol, Calc HDL Cholesterol Cholesterol/HDL Ratio Lipase 31 Beta-Hydroxybutyrate/Acetoacetate 0.2 Procalcitonin 0.17 HCG, Qual Ur Collection Type Urine Color Urine Clarity Urine pH Ur Specific [place] Urine Protein Urine Glucose (UA) Urine Ketones Urine Blood Urine Nitrite Urine Bilirubin Urine Urobilinogen (Auto) Ur Leukocyte Esterase Urine RBC Urine WBC Ur Squamous Epith Cells Urine Bacteria Urine Opiates Screen Urine Fentanyl Screen Ur Barbiturates Screen U Amphetamin/Meth Scrn U Benzodiazepines Scrn U Cocaine Metab Screen U Marijuana (THC) Screen 01/03/25 01/04/25 01/04/25 21:21 00:00 00:34 WBC RBC Hgb Hct MCV MCH MCHC RDW Std Deviation Plt Count Neut % (Auto) Lymph % (Auto) [place] % (Auto) Eos % (Auto) Baso % (Auto) Neut # (Auto) Lymph # (Auto) [place] # (Auto) Eos # (Auto) Baso # (Auto) Immature Gran # (Auto) Absolute Nucleated RBC Immature Gran % Nucleated RBC % ESR PT INR APTT Puncture Site ABG pH ABG pCO2 ABG pO2 ABG HCO3 ABG O2 Saturation ABG Base Excess FiO2 Sodium Potassium Chloride Carbon Dioxide Anion Gap BUN Creatinine Estim Creat Clear Calc eGFR BUN/Creatinine Ratio Glucose Estimated Ave Glu mg/dL Hemoglobin A1c Calculated Osmolality Lactic Acid 1.0 Calcium Corrected Calcium Phosphorus Magnesium Total Bilirubin AST ALT Alkaline Phosphatase Lactate Dehydrogenase Troponin I C-Reactive Prot, Quant B-Natriuretic Peptide Total Protein Albumin Globulin Albumin/Globulin Ratio Triglycerides 211 H Cholesterol 174 LDL Cholesterol, Calc 91 HDL Cholesterol 41 Cholesterol/HDL Ratio 4.2 Lipase Beta-Hydroxybutyrate/Acetoacetate Procalcitonin HCG, Qual Negative Ur Collection Type Clean Catch Urine Color Lt-Yellow Urine Clarity Clear Urine pH 6.0 Ur Specific [place] 1.027 Urine Protein Trace Urine Glucose (UA) 4+ A Urine Ketones Negative Urine Blood Negative Urine Nitrite Negative Urine Bilirubin Negative Urine Urobilinogen (Auto) Negative Ur Leukocyte Esterase Negative Urine RBC 0 Urine WBC 0 Ur Squamous Epith Cells 3 Urine Bacteria Rare Urine Opiates Screen Negative Urine Fentanyl Screen Negative Ur Barbiturates Screen Negative U Amphetamin/Meth Scrn Positive A U Benzodiazepines Scrn Negative U Cocaine Metab Screen Negative U Marijuana (THC) Screen Negative 01/04/25 06:28 WBC 11.4 H RBC 4.45 Hgb 13.5 Hct 38.6 MCV 87 MCH 30.3 MCHC 35.0 RDW Std Deviation 40.7 Plt Count 244 Neut % (Auto) 57 Lymph % (Auto) 32 [place] % (Auto) 9 Eos % (Auto) 1 Baso % (Auto) 0 Neut # (Auto) 6.5 Lymph # (Auto) 3.6 [place] # (Auto) 1.1 H Eos # (Auto) 0.1 Baso # (Auto) 0.0 Immature Gran # (Auto) 0.05 H Absolute Nucleated RBC 0.00 Immature Gran % 0 Nucleated RBC % 0 ESR PT INR APTT Puncture Site ABG pH ABG pCO2 ABG pO2 ABG HCO3 ABG O2 Saturation ABG Base Excess FiO2 Sodium 134 L Potassium 4.2 D Chloride 98 Carbon Dioxide 29.3 Anion Gap 7 BUN 13 Creatinine 0.7 D Estim Creat Clear Calc 83.0 eGFR > 60 BUN/Creatinine Ratio 19 Glucose [address] Glu mg/dL 355 H Hemoglobin A1c > 14.0 H Calculated Osmolality 278 Lactic Acid Calcium 8.8 Corrected Calcium 9.3 Phosphorus 2.9 Magnesium 1.4 L Total Bilirubin 0.4 AST 11 ALT 8 L Alkaline Phosphatase 105 D Lactate Dehydrogenase Troponin I C-Reactive Prot, Quant B-Natriuretic Peptide Total Protein 6.6 Albumin 3.4 L D Globulin 3.2 Albumin/Globulin Ratio 1.1 L Triglycerides Cholesterol LDL Cholesterol, Calc HDL Cholesterol Cholesterol/HDL Ratio Lipase Beta-Hydroxybutyrate/Acetoacetate Procalcitonin HCG, Qual Ur Collection Type Urine Color Urine Clarity Urine pH Ur Specific [place] Urine Protein Urine Glucose (UA) Urine Ketones Urine Blood Urine Nitrite Urine Bilirubin Urine Urobilinogen (Auto) Ur Leukocyte Esterase Urine RBC Urine WBC Ur Squamous Epith Cells Urine Bacteria Urine Opiates Screen Urine Fentanyl Screen Ur Barbiturates Screen U Amphetamin/Meth Scrn U Benzodiazepines Scrn U Cocaine Metab Screen U Marijuana (THC) Screen ABG Interpretation ABG results: 01/03/25 21:00 ABG pH 7.41 ABG pCO2 37 ABG pO2 67 L ABG HCO3 24 ABG O2 Saturation 94 ABG Base Excess -1 Quality Measures Quality Measures VTE prophylaxis Assessment & Plan Assessment Current Active Medications: Generic Name Dose Route Start Last Admin Trade Name Freq PRN Reason Stop Dose Admin Acetaminophen 650 mg 01/04/25 01:25 Acetaminophen 325 Mg Tablet PO 02/03/25 01:24 Q6H PRN Fever >100.3 or pain 1-3 Dextrose 25 ml 01/04/25 01:29 Dextrose 50%-Water Inj 50 Ml Syringe IV 02/03/25 01:28 Q15MIN PRN BG 50-70 responsive npo pt Dextrose 50 ml 01/04/25 01:29 Dextrose 50%-Water Inj 50 Ml Syringe IV 02/03/25 01:28 Q15MIN PRN BG <50 OR BG <70 & pt unresponsive Glucagon 1 mg 01/04/25 01:29 Glucagon Inj 1 Mg Vial IM Q15MIN PRN BG <70, and no IV access Heparin Sodium (Porcine) 5,000 unit 01/04/25 06:00 01/04/25 05:59 Heparin Sod Inj 5000 Unit/Ml Vial SC 01/18/25 05:59 5,000 unit Q8HR KATALINA Administration Piperacillin/Tazobactam/Dextrose 3.375 gm in 50 mls @ 12.5 mls/hr 01/04/25 07:00 01/04/25 07:39 Zosyn IV 01/11/25 06:59 12.5 mls/hr Q8HR KATALINA Administration Protocol Vancomycin/Sodium Chloride 100 mls @ 120 mls/hr 01/04/25 10:00 01/04/25 10:51 Vancomycin/Ns 500 Mg Ivpb IV 01/11/25 09:59 120 mls/hr Q12HR@1000,2200 KATALINA Administration Magnesium Sulfate 4 gm in 50 mls @ 12.5 mls/hr 01/04/25 08:12 01/04/25 09:10 Magnesium Sulfate Ivpb IV 01/04/25 12:11 12.5 mls/hr X1 ONE Administration Insulin Glargine 10 unit 01/04/25 21:00 Insulin Glargine (Lantus) 5 Unit/0.05 Ml (Per 5 Units) SC 02/03/25 20:59 HS KATALINA Insulin Human Lispro 0 unit 01/04/25 07:30 01/04/25 08:11 Insulin Lispro (Admelog) 1 Unit/0.01 Ml Unit SC 02/03/25 07:29 5 unit AC KATALINA Administration Protocol Ondansetron HCl 4 mg 01/03/25 20:33 Ondansetron Inj 2 Mg/Ml Inj 2 Ml IV 02/02/25 20:32 Q6HR PRN NAUSEA OR VOMITING Pharmacy Consult 1 each 01/04/25 09:00 Vancomycin Pharmacy To Dose 1 Each Each IV 02/03/25 08:59 QDAY PRN CONSULT Sennosides 1 tab 01/04/25 01:25 Senna Tablet PO 02/03/25 01:24 QDAY PRN constipation Protocol Plan Lily Morris is a 49-year-old female with a previous medical history of type 2 diabetes, methamphetamine abuse who came to the ED due to left foot edema, erythema and pain. Patient was admitted for left foot cellulitis due to diabetic foot infection. #Left foot cellulitis #Diabetic foot infection Patient had a trauma to her foot due to wearing tight shoes approximately 2 days ago. Plan: ?Vancomycin 4/5?current ? Zosyn 4/5?current ? Surgery consult ? Wound care referral ? Wound cultures ordered ? Blood cultures ordered #Insulin dependent Type 2 diabetes, poorly controlled #Hyperglycemia Patient reports history of diabetes for 4 years, denies taking diabetes medications. On admission glucose level was 637, she received 10 units of insulin. A1c >14.0 Plan: ? Sliding scale insulin ? start scheduled Gargline 10 units HS ? Hypoglycemia protocol, glucose checks ACHS -Dietary team referred for education #Pseudo hyponatremia-resolved Secondary to hyperglycemia in setting of T2DM Serum sodium is 127 with serum osmolality 286, most likely due to hyperglycemia induced water shift from intracellular extracellular space. Corrected serum sodium level approximately 137. Plan: ? Blood sugar control #Electrolyte abnormalities #Hypomagnesium -replete as needed Health maintenance: FEN: carbohydrate consistent low DVT prophylaxis: heparin sc GI prophylaxis: none Dispo: med surg CODE STATUS: Full code The patient's management plan was discussed with my attending physician Dr. Burgos. Christina Fonseca, PGY-1 Attending Provider Attestation/Addendum I reviewed labs, imaging, EKG, home medications and prior available records. Face to face evaluation was performed by me. I have personally examined the patient and discussed assessment and plan with the IM team. I reviewed the resident note and agree with the plan with exceptions as below. Left second toe cellulitis Insulin-dependent diabetes mellitus, type II, uncontrolled Lactic acidosis Hypertriglyceridemia Methamphetamine abuse Started IV vancomycin/Zosyn Follow-up wound and blood cultures Continue wound care Consulted general surgery: Plan for IR Avoid methamphetamine use Started long-acting insulin plus sliding scale. Monitor fingersticks Diabetes education Trend lactic acid: Down trended and normalized Start atorvastatin
--- NOTE | 2025-01-04 11:59 | ESCONSULT_ITS ---
HPI Consult details History of present illness: 49F with DMII admitted with left foot pain. Patient states the pain began a few days ago after she wore shoes that were too tight and she noted a blister on her left second toe. She denies any fever or malaise, has continued walking on the foot. WBC on admission 11.4, A1c greater than 14, foot x-ray negative for osteo PMH: DMII Meds: No antiplatelet or anticoagulation Social history: No cigarette smoking Review of Systems Review of Systems ROS Unobtainable: All systems reviewed & no additional complaints except as documented Meds Home Medications and Allergies Allergies Allergy/AdvReac Type Severity Reaction Status Date / Time No Known Allergies Allergy Unverified 01/04/25 10:43 Exam Vital Signs Temp Pulse Resp BP Pulse Ox O2 Del Method 97.6 F 95 16 114/73 93 L Room Air 01/04/25 07:58 01/04/25 09:37 01/04/25 09:37 01/04/25 07:58 01/04/25 07:58 01/04/25 07:58 Constitutional Constitutional: no acute distress Routine Respiratory Exam Respiratory: Present no resp distress Routine Extremities Exam Comments: Left foot with swelling/fluctuance and tenderness of the second toe, with mild erythema extending proximally toward the dorsum of the foot Results Results: Laboratory Laboratory results: results reviewed Results: Imaging Imaging narrative: Foot xray reviewed Assessment & Plan Plan 49F with DM2, A1c> 14 presenting with foot cellulitis and clinical findings of a n abscess of the second toe. I explained the incision and drainage will be useful to treat the infection and that she will likely have a wound in that area for weeks to months all questions were answered and patient is agreeable to proceeding NPO after MN for I&D of left second toe tomorrow
--- NOTE | 2025-01-04 15:19 | PC.SS ---
Addendum entered by Brooke Saba 01/04/25 15:21: Pending I&D with Dr. Garcia Original Note: Rounding: New pt, pending work up
[2025-01-04] MEDS: INSULIN GLARGINE (Lantus) 5 UNIT/0.05 ML (PER 5 UNITS) 10 UNIT SC (21:09)
[2025-01-05] VITALS (16 sets, daily range): BP systolic 116–149; BP diastolic 78–94; PULSE 82–94; RESP 14–95; TEMP 36.3–36.9; O2SAT 93–100; BMI 22.1
[2025-01-05 05:04] LABS: Basophils % (Auto) 0 % (0-2.5); Eosinophils # (Auto) 0.1 Thou/mm3 (0.0-0.5); Eosinophils % (Auto) 1 % (0-10); Hematocrit 39.5 % (36.0-46.0); Hemoglobin 13.4 g/dL (12.0-16.0); Immature Granulocytes % (Auto) 0 % (0-0); Immature Granulocytes Auto 0.03 Thou/mm3 (0.00-0.00); Lymphocytes # (Auto) 3.3 Thou/mm3 (1.0-4.8); Lymphocytes % (Auto) 34 % (10-50); Mean Corpuscular HGB Conc 33.9 g/dl (31.0-37.0); Mean Corpuscular Hemoglobin 30.5 pg (25.0-35.0); Mean Corpuscular Volume 90 fL (80-100); Monocytes # (Auto) 0.7 Thou/mm3 (0.0-0.8); Monocytes % (Auto) 7 % (0-12); Neutrophils # (Auto) 5.4 Thou/mm3 (1.8-7.7); Neutrophils % (Auto) 57 % (37-80); Nucleated Red Blood Cell % 0 /100 WBC (0); Platelet Count 243 Thou/mm3 (140-440); RDW Standard Deviation 42.1 fL (36.4-46.3); Red Blood Count 4.39 Miln/mm3 (4.00-5.20); White Blood Count 9.6 Thou/mm3 (3.6-11.0)
[2025-01-05] MEDS: PIPER/TAZO 3.375 GM PREMIX 3.375 GM/50 ML BAG IV ×3 (05:39→22:19)
[2025-01-05] MEDS: HEPARIN SOD INJ 5000 UNIT/ML VIAL SC ×2 (05:43→22:18)
[2025-01-05 05:50] LABS: Alanine Aminotransferase 7 U/L (10-49); Albumin, Serum 3.3 gm/dL (3.5-5.0); Alkaline Phosphatase 95 U/L (46-116); Anion Gap 7 (7-16); Aspartate Amino Transferase 10 U/L (0-34); BUN/Creatinine Ratio 19 Ratio (12-20); Bilirubin,Total 0.2 mg/dL (0.3-1.2); Blood Urea Nitrogen 13 mg/dL (9-23); Calcium 8.9 mg/dL (8.3-10.6); Calcium (Corrected) 9.5 mg/dL (8.5-10.1); Carbon Dioxide 27.1 mMol/L (20.0-31.0); Chloride 100 mMol/L (98-107); Creatinine (Component) 0.7 mg/dL (0.6-1.3); Globulin 3.3 gm/dL (2.3-3.5); Glucose 231 mg/dL (74-106); Magnesium 1.7 mg/dL (1.6-2.6); Osmolality,Calculated 275 (275-295); Sodium 134 mMol/L (136-145); Total Protein 6.6 gm/dL (5.7-8.2); eGFR > 60 See Note
--- NOTE | 2025-01-05 10:00 | PC.SS ---
Follow up note: I & D today by Dr. Garcia. On IV antibiotic. Pt will return home upon dc.
[2025-01-05 11:24] LABS: Vancomycin,Trough 4.5 mcg/mL (5.0-10.0)
[2025-01-05] MEDS: VANCOMYCIN/NS 750 MG IVPB 750 MG/150 ML BAG 120 MG IV ×2 (12:58→21:43)
--- NOTE | 2025-01-05 13:25 | PC.DIETICIAN ---
Dietitian consult: RD did bedside teaching for Contour Next EZ glucometer. Pt was able to test blood sugar with return demonstration with appropriate steps. Pt will need supplies ordered on discharge. She is also requesting insulin education. Thank you
--- NOTE | 2025-01-05 15:21 | PD.RESPRO ---
Documentation for date of: 01/05/25 Subjective Subjective Interval history: Patient examined at bedside. No overnight events. No major complaints. Vitals are stable. Leukocytosis improving to 9.6 today. Sodium 134 most likely due to decreased oral intake. Patient n.p.o. for incision and drainage of left second toe planned today by Dr. Amezquita. Continue IV antibiotics for treatment of left foot cellulitis. Exam Vital Signs Temp Pulse Resp BP Pulse Ox O2 Del Method 98.5 F 91 14 128/82 100 Room Air 01/05/25 12:00 01/05/25 12:01/05/25 12:01/05/25 12:01/05/25 12:01/05/25 07:38 Narrative Exam General: Mild agged female, Awake and in no acute distress. Conversational and non-toxic appearing. HEENT: Normocephalic, atraumatic, mucous membranes moist, no teeth Heart: Regular rate and rhythm, no murmurs. Lungs: Clear to auscultation with no wheezing or crackles. Abdomen: Soft, nondistended, nontender, positive bowel sounds. ?No guarding or rebound tenderness. Neurologic: Alert and oriented x3, no gross neurological deficit, and patient able to move all 4 extremities. Extremities: Erythema, edema on the dorsum of the left foot in the base of the toes. Superficial wound in the 2nd toe, pustular drainage Skin: No rash or ecchymoses. Objective Labs 01/06/25 04:07 01/06/25 04:07 Labs: Laboratory Results - last 24 hr 01/05/25 01/05/25 04:52 10:10 WBC 9.6 RBC 4.39 Hgb 13.4 Hct 39.5 MCV 90 MCH 30.5 MCHC 33.9 RDW Std Deviation 42.1 Plt Count 243 Neut % (Auto) 57 Lymph % (Auto) 34 [place] % (Auto) 7 Eos % (Auto) 1 Baso % (Auto) 0 Neut # (Auto) 5.4 Lymph # (Auto) 3.3 [place] # (Auto) 0.7 Eos # (Auto) 0.1 Baso # (Auto) 0.0 Immature Gran # (Auto) 0.03 H Absolute Nucleated RBC 0.00 Immature Gran % 0 Nucleated RBC % 0 Sodium 134 L Potassium 4.0 Chloride 100 Carbon Dioxide 27.1 Anion Gap 7 BUN 13 Creatinine 0.7 Estim Creat Clear Calc 83.0 eGFR > 60 BUN/Creatinine Ratio 19 Glucose 231 H Calculated Osmolality 275 Calcium 8.9 Corrected Calcium 9.5 Magnesium 1.7 Total Bilirubin 0.2 L AST 10 ALT 7 L Alkaline Phosphatase 95 Total Protein 6.6 Albumin 3.3 L Globulin 3.3 Albumin/Globulin Ratio 1.0 L Vancomycin Trough 4.5 L ABG Interpretation ABG results: 01/03/25 21:00 ABG pH 7.41 ABG pCO2 37 ABG pO2 67 L ABG HCO3 24 ABG O2 Saturation 94 ABG Base Excess -1 Quality Measures Quality Measures VTE prophylaxis Assessment & Plan Assessment Current Active Medications: Generic Name Dose Route Start Last Admin Trade Name Freq PRN Reason Stop Dose Admin Acetaminophen 650 mg 01/04/25 01:25 Acetaminophen 325 Mg Tablet PO 02/03/25 01:24 Q6H PRN Fever >100.3 or pain 1-3 Atorvastatin Calcium 20 mg 01/05/25 21:00 Atorvastatin Calcium 20 Mg Tablet PO 02/04/25 20:59 HS KATALINA Clopidogrel Bisulfate 75 mg 01/06/25 09:00 Clopidogrel Bisulfate 75 Mg Tablet PO 02/05/25 08:59 QDAY KATALINA Dextrose 25 ml 01/04/25 01:29 Dextrose 50%-Water Inj 50 Ml Syringe IV 02/03/25 01:28 Q15MIN PRN BG 50-70 responsive npo pt Dextrose 50 ml 01/04/25 01:29 Dextrose 50%-Water Inj 50 Ml Syringe IV 02/03/25 01:28 Q15MIN PRN BG <50 OR BG <70 & pt unresponsive Fentanyl Citrate 25 mcg 01/05/25 14:43 Fentanyl Cit Inj 50 Mcg/Ml Amp 2ml IV 01/05/25 16:43 Q5M PRN PAIN SCALE 1-3 (mild Glucagon 1 mg 01/04/25 01:29 Glucagon Inj 1 Mg Vial IM Q15MIN PRN BG <70, and no IV access Heparin Sodium (Porcine) 5,000 unit 01/04/25 06:00 01/05/25 05:43 Heparin Sod Inj 5000 Unit/Ml Vial SC 01/18/25 05:59 5,000 unit Q8HR KATALINA Administration Hydromorphone HCl 0.4 mg 01/05/25 14:43 Hydromorphone Inj 2 Mg/Ml Vial IV 01/05/25 16:44 Q5M PRN PAIN SCALE 7-10 (Severe Piperacillin/Tazobactam/Dextrose 3.375 gm in 50 mls @ 12.5 mls/hr 01/04/25 07:00 01/05/25 05:39 Zosyn IV 01/11/25 06:59 12.5 mls/hr Q8HR KATALINA Administration Protocol Vancomycin/Sodium Chloride 750 mg in 150 mls @ 120 mls/hr 01/05/25 11:45 01/05/25 12:58 Vancomycin/Ns 750 Mg Ivpb IV 01/12/25 11:44 120 mls/hr BID@1000,2200 KATALINA Administration Insulin Glargine 10 unit 01/04/25 21:00 01/04/25 21:09 Insulin Glargine (Lantus) 5 Unit/0.05 Ml (Per 5 Units) SC 02/03/25 20:59 10 unit HS KATALINA Administration Insulin Human Lispro 0 unit 01/04/25 07:30 01/05/25 11:11 Insulin Lispro (Admelog) 1 Unit/0.01 Ml Unit SC 02/03/25 07:29 Not Given AC KATALINA Protocol Morphine Sulfate 3 mg 01/05/25 14:43 Morphine Sulf Inj 10 Mg/Ml Vial IV 01/05/25 16:44 Q5M PRN PAIN SCALE 4-6 (Moderate Ondansetron HCl 4 mg 01/03/25 20:33 Ondansetron Inj 2 Mg/Ml Inj 2 Ml IV 02/02/25 20:32 Q6HR PRN NAUSEA OR VOMITING Pharmacy Consult 1 each 01/04/25 09:00 Vancomycin Pharmacy To Dose 1 Each Each IV 02/03/25 08:59 QDAY PRN CONSULT Sennosides 1 tab 01/04/25 01:25 Senna Tablet PO 02/03/25 01:24 QDAY PRN constipation Protocol Plan Lily Morris is a 49-year-old female with a previous medical history of type 2 diabetes, methamphetamine abuse who came to the ED due to left foot edema, erythema and pain. Patient was admitted for left foot cellulitis due to diabetic foot infection. #Left foot cellulitis of second toe #Diabetic foot infection Patient had a trauma to her foot due to wearing tight shoes approximately 2 days ago. Plan: ?Vancomycin 4/5?current ? Zosyn 01/03?current ? Surgery Dr. Garcia consulted--patient will undergo incision and drainage today ? Wound care referral ? Wound Gram stain negative ? Preliminary blood cultures negative #Insulin dependent Type 2 diabetes, poorly controlled #Hyperglycemia Patient reports history of diabetes for 4 years, denies taking diabetes medications. On admission glucose level was 637, she received 10 units of insulin. A1c >14.0 Plan: ? Sliding scale insulin ? scheduled Gargline 10 units HS ? Hypoglycemia protocol, glucose checks ACHS -Dietary team referred for education #Pseudo hyponatremia-resolved Secondary to hyperglycemia in setting of T2DM Serum sodium is 127 with serum osmolality 286, most likely due to hyperglycemia induced water shift from intracellular extracellular space. Corrected serum sodium level approximately 137. Plan: ? Blood sugar control #Electrolyte abnormalities #Hypomagnesium -replete as needed Health maintenance: FEN: carbohydrate consistent low, n.p.o. until ID DVT prophylaxis: heparin sc GI prophylaxis: none Dispo: med surg CODE STATUS: Full code The patient's management plan was discussed with my attending physician Dr. Burgos. Christina Fonseca, PGY-1 Attending Provider Attestation/Addendum I reviewed labs, imaging, EKG, home medications and prior available records. Face to face evaluation was performed by me. I have personally examined the patient and discussed assessment and plan with the IM team. I reviewed the resident note and agree with the plan with exceptions as below. Left second toe cellulitis Insulin-dependent diabetes mellitus, type II, uncontrolled Lactic acidosis Hypertriglyceridemia Methamphetamine abuse PAD Started IV vancomycin/Zosyn Follow-up wound and blood cultures Continue wound care Consulted general surgery: Plan for incision and drainage on 01/05 Avoid methamphetamine use Started long-acting insulin plus sliding scale. Monitor fingersticks Diabetes education Trend lactic acid: Down trended and normalized Arterial duplex showed significant peripheral vascular disease. Ordered CTA aortic/lower extremity Started atorvastatin Start Plavix after OR Ordered echocardiogram Outpatient follow-up with vascular surgery
--- NOTE | 2025-01-05 15:22 | ESOP_ITS ---
Date of Procedure 01/05/25 Pre Op Diagnosis Left second toe abscess Post Op Diagnosis Same Procedure Incision and drainage of left second toe abscess, excisional debridement of necrotic skin Findings Left second toe abscess containing minimal pus, necrotic tissue of the medial aspect of the toe Procedure Description After discussion of risks and benefits, patient was brought to the operating room, and SCD was placed on the right, MAC anesthesia was induced and an ankle block was performed. She was prepped and draped in usual sterile fashion and is already on strong antibiotics. After timeout the existing opening on the base of the dorsum of the left second toe was extended distally in a longitudinal fashion using a #15 blade. There was expression of approximately 5 cc of pus from which a culture was taken. The wound was probed for loculations. The skin of the medial aspect of the left toe was noted to be necrotic and so this skin was excised sharply using scissors to the level of subcutaneous tissue. There was some necrotic tissue just deep to the skin which was curetted. The wound was irrigated and hemostasis was achieved with electrocautery. The wound was covered with a moistened gauze and fluffs were placed between each toe. The foot was wrapped with a Kerlix roll and secured with tape. Patient was awoken a nd brought to PACU in stable condition Pathology / specimen Other (Left second toe abscess, left second toe necrotic tissue) Estimated Blood Loss 5 Surgeon Rachel Garcia MD Surgical Staff Operation Date: 01/05/25 14:00 <No data on this case meets the specified criteria>
--- NOTE | 2025-01-05 15:57 | SUR.PHASEI ---
1524: pt arrived to PACU via gurney drowsy but arouses to voice, breathing unlabored, dressing to left foot clean, dry, and intact, report from Checo ENRIQUEZ and Dr Gonzalez 1557: pt awake, alert, able to follow commands, breathing unlabored, dressing to left foot clean, dry, and intact, pt able to tolerate oral fluids without difficulty swallowing or n/v, VS stable, report called to Kalani ENRIQUEZ, pt transferred to room at this time
--- NOTE | 2025-01-05 16:24 | XR_ITS ---
Examination: CTA abdominal aorta iliofemoral runoff. 2-D sagittal coronal reconstructions. 3-D reconstructions, vascular Exam date and time: January 06, 2025 1250 hrs. Technique: Multiple CTA images of the abdominal aorta iliofemoral runoff arterial vessels, 2.0 mm slice thickness, post intravenous administration 130 cc [id number]-[id number] 2-D sagittal coronal reconstructions. 3-D reconstructions, vascular 3-D postprocessing, including vascular maximum intensity projection images, 3-D volume rendering Low dose protocols were performed. One or more of the following dose reduction techniques were used; automated exposure control, adjustment of the mA and/or KV according to patient size, use of iterative reconstruction technique. Findings: No focal liver or splenic lesions Contracted gallbladder No pancreatic or adrenal mass No renal or ureteral calculi, hydronephrosis Common bile duct 7 mm no stones No bowel obstruction No pelvic mass Colonic diverticulosis Normal appendix Bladder intact No abdominal aortic aneurysmal dilatation No significant stenoses common iliac and external iliac or common femoral arteries 50% stenosis proximal right superficial femoral artery axial image 284 short segment Right popliteal artery intact Reduced flow and marked attenuation main continuation trunk right anterior tibial artery, not opacified distally 50% stenosis proximal left superficial femoral artery image 260 50% stenosis mid left superficial femoral artery image 296 Intact popliteal artery Left anterior tibial and main continuation trunk are attenuated but all 3 trifurcation vessels fill in the ankle Impression: 50% stenosis proximal right superficial femoral artery Reduced flow and marked attenuation right anterior tibial and main continuation trunk both arteries not opacified in the distal third 50% stenoses left superficial femoral artery Left anterior tibial and main continuation trunk are attenuated but all 3 trifurcation vessels fill to the ankle.
[2025-01-05] MEDS: ATORVASTATIN CALCIUM 20 MG TABLET PO (20:49)
[2025-01-05] MEDS: INSULIN GLARGINE (Lantus) 5 UNIT/0.05 ML (PER 5 UNITS) 10 UNIT SC (20:50)
[2025-01-06] VITALS (7 sets, daily range): BP systolic 129–133; BP diastolic 85–93; PULSE 63–99; RESP 15–95; TEMP 36.3–36.5; O2SAT 92–97
[2025-01-06 05:22] LABS: Basophils % (Auto) 0 % (0-2.5); Eosinophils # (Auto) 0.1 Thou/mm3 (0.0-0.5); Eosinophils % (Auto) 1 % (0-10); Hematocrit 38.1 % (36.0-46.0); Hemoglobin 12.9 g/dL (12.0-16.0); Immature Granulocytes % (Auto) 0 % (0-0); Immature Granulocytes Auto 0.04 Thou/mm3 (0.00-0.00); Lymphocytes # (Auto) 3.5 Thou/mm3 (1.0-4.8); Lymphocytes % (Auto) 36 % (10-50); Mean Corpuscular HGB Conc 33.9 g/dl (31.0-37.0); Mean Corpuscular Hemoglobin 29.8 pg (25.0-35.0); Mean Corpuscular Volume 88 fL (80-100); Monocytes % (Auto) 10 % (0-12); Neutrophils # (Auto) 5.1 Thou/mm3 (1.8-7.7); Neutrophils % (Auto) 52 % (37-80); Nucleated Red Blood Cell % 0 /100 WBC (0); Platelet Count 291 Thou/mm3 (140-440); Red Blood Count 4.33 Miln/mm3 (4.00-5.20); White Blood Count 9.7 Thou/mm3 (3.6-11.0)
[2025-01-06] MEDS: HEPARIN SOD INJ 5000 UNIT/ML VIAL SC ×3 (05:34→21:26)
[2025-01-06] MEDS: PIPER/TAZO 3.375 GM PREMIX 3.375 GM/50 ML BAG IV ×3 (05:34→21:26)
[2025-01-06 06:02] LABS: Alanine Aminotransferase 7 U/L (10-49); Albumin, Serum 3.5 gm/dL (3.5-5.0); Albumin/Globulin Ratio 1.1 (1.2-2.2); Alkaline Phosphatase 102 U/L (46-116); Anion Gap 9 (7-16); Aspartate Amino Transferase 12 U/L (0-34); BUN/Creatinine Ratio 20 Ratio (12-20); Bilirubin,Total 0.2 mg/dL (0.3-1.2); Blood Urea Nitrogen 14 mg/dL (9-23); Calcium 8.9 mg/dL (8.3-10.6); Calcium (Corrected) 9.3 mg/dL (8.5-10.1); Carbon Dioxide 26.4 mMol/L (20.0-31.0); Chloride 99 mMol/L (98-107); Creatinine (Component) 0.7 mg/dL (0.6-1.3); Globulin 3.3 gm/dL (2.3-3.5); Glucose 237 mg/dL (74-106); Magnesium 1.5 mg/dL (1.6-2.6); Osmolality,Calculated 276 (275-295); Sodium 134 mMol/L (136-145); Total Protein 6.8 gm/dL (5.7-8.2); eGFR > 60 See Note
[2025-01-06] MEDS: INSULIN LISPRO (AdmeLOG) 1 UNIT/0.01 ML UNIT SC ×3 (08:02→18:22)
[2025-01-06] MEDS: CLOPIDOGREL BISULFATE 75 MG TABLET PO (09:58)
[2025-01-06] MEDS: VANCOMYCIN/NS 750 MG IVPB 750 MG/150 ML BAG 120 MG IV ×2 (09:59→23:45)
[2025-01-06 11:38] LABS: HCG Qualitative,Urine Negative
[2025-01-06] MEDS: MORPHINE SULF INJ 10 MG/ML VIAL 2 MG IVP (14:29)
--- NOTE | 2025-01-06 14:39 | PD.SURPROG ---
Documentation for date of: 01/06/25 Subjective Subjective Brief History: 49F with DMII admitted with left foot pain. Patient states the pain began a few days ago after she wore shoes that were too tight and she noted a blister on her left second toe. She denies any fever or malaise, has continued walking on the foot. WBC on admission 11.4, A1c greater than 14, foot x-ray negative for osteo PMH: DMII Meds: No antiplatelet or anticoagulation Social history: No cigarette smoking Narrative: Pain controlled, WBC remaining normal Exam Vital Signs Temp Pulse Resp BP Pulse Ox O2 Del Method O2 Flow Rate 97.4 F 90 15 130/90 H 95 Room Air 2 01/06/25 08:00 01/06/25 08:00 01/06/25 08:00 01/06/25 08:00 01/06/25 08:00 01/06/25 08:00 01/05/25 15:34 Constitutional Constitutional: no acute distress Routine Respiratory Exam Respiratory: Present no resp distress Routine Extremities Exam Comments: left second toe wound at the medial aspect with no bleeding, no necrotic tissue, improved erythema of the dorsum of the foot Results Results: Laboratory Laboratory results: results reviewed Assessment & Plan Plan 49F with DM2, A1c> 14 presenting with foot cellulitis and clinical findings of an abscess of the second toe s/p I&D 01/05, recovering well Daily wet-dry dressings OK for dc from my standpoint Refer to Wound Healing Procedures Procedures Incision and drainage of left second toe abscess, excisional debridement of necrotic skin
--- NOTE | 2025-01-06 17:36 | PD.RESPRO ---
Documentation for date of: 01/06/25 Subjective Subjective Interval history: Patient examined at bedside. No events overnight. Has no major complaints. Status post I&D of left toe abscess by Dr. Amezquita today. Left foot is wrapped in Kerlix roll with no obvious bleeding or seeping noticed. Dressing is clean. Will continue with IV vancomycin and Zosyn with de-escalation of the antibiotics once wound cultures have returned. Blood sugars still poorly controlled --increase glargine to 15 units with continued sliding scale insulin. CTA abdomen aorta iliofemoral runoff showed 50% stenosis of the proximal right and left superficial femoral artery. Will start Plavix for PAD. Exam Vital Signs Temp Pulse Resp BP Pulse Ox O2 Del Method O2 Flow Rate 97.4 F 90 20 130/90 H 95 Room Air 2 01/06/25 08:00 01/06/25 10:00 01/06/25 10:00 01/06/25 08:00 01/06/25 08:00 01/06/25 08:00 01/05/25 15:34 Narrative Exam General: Mild agged female, Awake and in no acute distress. Conversational and non-toxic appearing. HEENT: Normocephalic, atraumatic, mucous membranes moist, no teeth Heart: Regular rate and rhythm, no murmurs. Lungs: Clear to auscultation with no wheezing or crackles. Abdomen: Soft, nondistended, nontender, positive bowel sounds. ?No guarding or rebound tenderness. Neurologic: Alert and oriented x3, no gross neurological deficit, and patient able to move all 4 extremities. Extremities: Erythema, edema on the dorsum of the left foot in the base of the toes. Superficial wound in the 2nd toe, pustular drainage. Difficulty palpating pedal pulses. Skin: No rash or ecchymoses. Objective Labs 01/06/25 04:07 01/06/25 04:07 Labs: Laboratory Results - last 24 hr 01/06/25 01/06/25 04:07 10:07 WBC 9.7 RBC 4.33 Hgb 12.9 Hct 38.1 MCV 88 MCH 29.8 MCHC 33.9 RDW Std Deviation 40.0 Plt Count 291 D Neut % (Auto) 52 Lymph % (Auto) 36 Sawyer % (Auto) 10 Eos % (Auto) 1 Baso % (Auto) 0 Neut # (Auto) 5.1 Lymph # (Auto) 3.5 Sawyer # (Auto) 1.0 H Eos # (Auto) 0.1 Baso # (Auto) 0.0 Immature Gran # (Auto) 0.04 H Absolute Nucleated RBC 0.00 Immature Gran % 0 Nucleated RBC % 0 Sodium 134 L Potassium 4.0 Chloride 99 Carbon Dioxide 26.4 Anion Gap 9 BUN 14 Creatinine 0.7 Estim Creat Clear Calc 83.0 eGFR > 60 BUN/Creatinine Ratio 20 Glucose 237 H Calculated Osmolality 276 Calcium 8.9 Corrected Calcium 9.3 Magnesium 1.5 L Total Bilirubin 0.2 L AST 12 ALT 7 L Alkaline Phosphatase 102 Total Protein 6.8 Albumin 3.5 Globulin 3.3 Albumin/Globulin Ratio 1.1 L Urine HCG, Qual Negative ABG Interpretation ABG results: 01/03/25 21:00 ABG pH 7.41 ABG pCO2 37 ABG pO2 67 L ABG HCO3 24 ABG O2 Saturation 94 ABG Base Excess -1 Quality Measures Quality Measures VTE prophylaxis Assessment & Plan Assessment Current Active Medications: Generic Name Dose Route Start Last Admin Trade Name Freq PRN Reason Stop Dose Admin Acetaminophen 650 mg 01/04/25 01:25 Acetaminophen 325 Mg Tablet PO 02/03/25 01:24 Q6H PRN Fever >100.3 or pain 1-3 Atorvastatin Calcium 20 mg 01/05/25 21:00 01/05/25 20:49 Atorvastatin Calcium 20 Mg Tablet PO 02/04/25 20:59 20 mg HS KATALINA Administration Clopidogrel Bisulfate 75 mg 01/06/25 09:00 01/06/25 09:58 Clopidogrel Bisulfate 75 Mg Tablet PO 02/05/25 08:59 75 mg QDAY KATALINA Administration Dextrose 25 ml 01/04/25 01:29 Dextrose 50%-Water Inj 50 Ml Syringe IV 02/03/25 01:28 Q15MIN PRN BG 50-70 responsive npo pt Dextrose 50 ml 01/04/25 01:29 Dextrose 50%-Water Inj 50 Ml Syringe IV 02/03/25 01:28 Q15MIN PRN BG <50 OR BG <70 & pt unresponsive Glucagon 1 mg 01/04/25 01:29 Glucagon Inj 1 Mg Vial IM Q15MIN PRN BG <70, and no IV access Heparin Sodium (Porcine) 5,000 unit 01/04/25 06:00 01/06/25 14:02 Heparin Sod Inj 5000 Unit/Ml Vial SC 01/18/25 05:59 5,000 unit Q8HR KATALINA Administration Piperacillin/Tazobactam/Dextrose 3.375 gm in 50 mls @ 12.5 mls/hr 01/04/25 07:00 01/06/25 14:01 Zosyn IV 01/11/25 06:59 12.5 mls/hr Q8HR KATALINA Administration Protocol Vancomycin/Sodium Chloride 750 mg in 150 mls @ 120 mls/hr 01/05/25 11:45 01/06/25 09:59 Vancomycin/Ns 750 Mg Ivpb IV 01/12/25 11:44 120 mls/hr BID@1000,2200 KATALINA Administration Protocol Insulin Glargine 15 unit 01/06/25 21:00 Insulin Glargine (Lantus) 5 Unit/0.05 Ml (Per 5 Units) SC 02/05/25 20:59 HS KATAILNA Insulin Human Lispro 0 unit 01/04/25 07:30 01/06/25 12:35 Insulin Lispro (Admelog) 1 Unit/0.01 Ml Unit SC 02/03/25 07:29 5 unit AC KATALINA Administration Protocol Ondansetron HCl 4 mg 01/03/25 20:33 Ondansetron Inj 2 Mg/Ml Inj 2 Ml IV 02/02/25 20:32 Q6HR PRN NAUSEA OR VOMITING Pharmacy Consult 1 each 01/04/25 09:00 Vancomycin Pharmacy To Dose 1 Each Each IV 02/03/25 08:59 QDAY PRN CONSULT Sennosides 1 tab 01/04/25 01:25 Senna Tablet PO 02/03/25 01:24 QDAY PRN constipation Protocol Plan Lily Morris is a 49-year-old female with a previous medical history of type 2 diabetes, methamphetamine abuse who came to the ED due to left foot edema, erythema and pain. Patient was admitted for left foot cellulitis due to diabetic foot infection. #Left foot cellulitis of second toe #Left second toe abscess s/p I&D #Diabetic foot infection #Peripheral artery disease Patient had a trauma to her foot due to wearing tight shoes. Surgery Dr. Garcia consulted--patient had incision and drainage 01/05 CTA abdomen aorta iliofemoral runoff showed 50% stenosis of the proximal right and left superficial femoral artery. Plan: ?Vancomycin /5?current ? Zosyn /5?current ? Wound care referral ? Wound Gram stain negative ? Preliminary blood cultures negative -start Plavix for PAD #Insulin dependent Type 2 diabetes, poorly controlled #Hyperglycemia Patient reports history of diabetes for 4 years, denies taking diabetes medications. On admission glucose level was 637, she received 10 units of insulin. A1c >14.0 Plan: ? Sliding scale insulin ? scheduled Gargline 15 units HS ? Hypoglycemia protocol, glucose checks ACHS -Dietary team referred for education #Pseudo hyponatremia-resolved Secondary to hyperglycemia in setting of T2DM Serum sodium is 127 with serum osmolality 286, most likely due to hyperglycemia induced water shift from intracellular extracellular space. Corrected serum sodium level approximately 137. Plan: ? Blood sugar control #Electrolyte abnormalities #Hypomagnesium -replete as needed Health maintenance: FEN: carbohydrate consistent low DVT prophylaxis: heparin sc GI prophylaxis: none Dispo: med surg CODE STATUS: Full code The patient's management plan was discussed with my attending physician Dr. Burgos. Christina Fonseca, PGY-1 Attending Provider Attestation/Addendum I reviewed labs, imaging, EKG, home medications and prior available records. Face to face evaluation was performed by me. I have personally examined the patient and discussed assessment and plan with the IM team. I reviewed the resident note and agree with the plan with exceptions as below. Left second toe cellulitis Insulin-dependent diabetes mellitus, type II, uncontrolled Lactic acidosis Hypertriglyceridemia Methamphetamine abuse PAD Started IV vancomycin/Zosyn Follow-up wound and blood cultures: Wound culture is growing gram-positive cocci Continue wound care Consulted general surgery: S/p incision and drainage on 01/05 Avoid methamphetamine use Started long-acting insulin plus sliding scale. Increased insulin glargine. Monitor fingersticks Diabetes education Trend lactic acid: Down trended and normalized Arterial duplex showed significant peripheral vascular disease. Ordered CTA aortic/lower extremity: Showed moderate stenosis Started atorvastatin Started Plavix Ordered echocardiogram Outpatient follow-up with vascular surgery Ordered PT evaluation
[2025-01-06] MEDS: ATORVASTATIN CALCIUM 20 MG TABLET PO (21:26)
[2025-01-06] MEDS: INSULIN GLARGINE (Lantus) 5 UNIT/0.05 ML (PER 5 UNITS) 15 UNIT SC (21:26)
[2025-01-06] MEDS: ACETAMINOPHEN 325 MG TABLET 650 MG PO (21:27)
[2025-01-06 23:06] LABS: Vancomycin,Trough 6.6 mcg/mL (5.0-10.0)
[2025-01-07] VITALS: BP 121/77; PULSE 79; RESP 19; TEMP 35.9; O2SAT 95
[2025-01-07 04:00] VITALS: BP 143/81; PULSE 71; RESP 16; TEMP 36.6; O2SAT 92
[2025-01-07] MEDS: HEPARIN SOD INJ 5000 UNIT/ML VIAL SC (05:27)
[2025-01-07] MEDS: PIPER/TAZO 3.375 GM PREMIX 3.375 GM/50 ML BAG IV (05:27)
[2025-01-07 06:49] LABS: Magnesium 1.6 mg/dL (1.6-2.6)
[2025-01-07 07:30] VITALS: BP 124/91; PULSE 82; RESP 14; TEMP 36.2; O2SAT 93
[2025-01-07] MEDS: INSULIN LISPRO (AdmeLOG) 1 UNIT/0.01 ML UNIT SC ×2 (07:36→11:42)
--- NOTE | 2025-01-07 08:45 | PC.CC ---
Diabetic education provided by Omaira, practice or student teacher. Her note as follows: Conducted diabetes education with the patient, explained the significance of hemoglobin A1c, including target levels, and discussed appropriate blood glucose ranges. Reviewed the importance of daily foot care and instructed the patient on how to assess for blisters, skin breakdown, or other abnormalities. Provided detailed instructions on proper insulin administration using an insulin pen and demonstrated blood glucose monitoring techniques. Discussed the option of using a CGM; the patient was receptive and expressed interest, stating it would facilitate easier more consistent blood glucose monitoring.
[2025-01-07] MEDS: VANCOMYCIN/NS 750 MG IVPB 750 MG/150 ML BAG 120 MG IV (08:50)
[2025-01-07] MEDS: CLOPIDOGREL BISULFATE 75 MG TABLET PO (08:50)
[2025-01-07] MEDS: Magnesium Sulfate 4 GM Ivpb 4 GM/50 ML BAG IV (09:40)
--- NOTE | 2025-01-07 10:18 | PC.SS ---
Follow up note: ID has been done. Control blood sugars. Pt is on IV antibiotic. Pt will return home upon dc.
--- NOTE | 2025-01-07 10:46 | PC.PT ---
PT eval only. Patient is safe to ambulate in the lopez and to the bathroom with a FWW and 1 staff assist to ensure proper adherence to her HWB precaution on the L foot. RN made aware.
--- NOTE | 2025-01-07 11:20 | PC.SS ---
Addendum entered by Sherri Calvin 01/07/25 12:29: Appointment date is Appointment date is Sunday at January 12, 2025 at 11am not 2pm. Addendum entered by Sherri Calvin 01/07/25 11:56: SS met with pt and provided her with [facility]. Pt is aware walker has been ordered and requires insurance authorization. SS has also provided pt with walk in time to follow up at [facility] with Dr. Fonseca at 2pm. Pt is requesting to follow up with [facility]. [facility] has accepted on [facility]. [facility] is still pending. Licare declined. [facility]. Original Note: SS has sent DME order for walker using [facility]. SS spoke to [facility] PT who is recommending a front 2 wheel walker.
--- NOTE | 2025-01-07 11:31 | ESDS_ITS ---
Planned Discharge Date 01/07/25 DS: Providers Provider Date of admission: 01/04/25 01:24 Primary care physician: Luigi Morris MD Admitting Provider: Bart Remy MD Attending Provider on Admission: Phillip Burgos MD Consults: 01/04/25 01:37 Consult to General Surgery Stat Comment: left foot cellulitis Consulting Provider: Rachel Garcia 01/04/25 01:40 Referral Wound Care Routine Comment: 01/04/25 08:09 Referral Registered Dietitian Routine Comment: Poorly controlled diabetic Instructions: Patient here for treatment of possible osteomyelitis. BS 637 in ED, A1c >14.0. May benefit from education. Thank you 01/05/25 15:29 Referral Registered Dietitian Routine Comment: 01/06/25 11:15 Referral Physical Therapy Routine Comment: Physician Instructions: Attending Provider on DC: Phillip Burgos MD Discharging Provider: Phillip Burgos MD DS: Diagnosis Problem List Completed Was Problem List Reviewed/Reconciled?: Yes Hospital Course Hospital Course Hospital course: Reason for hospitalization: left toe abscess, hyperglycemia Lily Morris is 49 yr female with PMH of poorly controlled type 2 diabetes, methamphetamine abuse who presented to [facility] ED on 01/04/25 due to left foot edema, erythema and pain. Patient had started wearing a new pair of shoes which were slightly tight. Ended up developing a blister on left toe. Patient had elevated WBC 12.1, lactic acid 4.2, afebrile. Her glucose was 637 on admission. Foot x-ray was negative for chyna cortical bone destruction, showed soft tissue swelling at the first metatarsophalangeal joint. Chest x-ray was negative for pneumonia or pulmonary edema. General surgery, Dr. Amezquita was consulted and patient was admitted for management of hyperglycemia and left toe abscess. Patient was started on IV antibiotics with Zosyn and vancomycin. Blood cultures and wound cultures were negative. She underwent incision and drainage of the left toe on 01/05/2025. There was some necrotic tissue just deep to the skin which was curetted. Blood sugars improved during hospitalization with 15 units glargine and 5 units Lispro TID. She received diabetic education as well, demonstrated understanding. CTA of abdominal aorta iliofemoral runoff showed 50% stenosis of proximal left and right superficial femoral arteries. Indicating possible peripheral artery disease, she was started on Plavix 75mg and atorvastatin 20mg. Patient is now in stable condition and ready for discharge. Recommendations were given as below. Discharge Recommendations: Take clindamycin 300 mg every 6 hours for 5 days to complete treatment for your infection. Continue atorvastatin and Plavix daily for peripheral arterial disease. Follow- up with vascular surgery. Take insulin Lantus 15 units every night and lispro 5 units 3 times a day with meals Follow-up with primary care physician in 1 week to optimize diabetes regimen. You can also follow-up in [facility] in 1 to 2 weeks. Call [phone] to make an appointment Address: [facility], [address], [address], [place], [address] Return to ED if symptoms return or worsen. Hospital Diagnoses: #Left foot cellulitis of second toe #Left second toe abscess s/p I&D #Diabetic foot infection #Peripheral artery disease #Insulin dependent Type 2 diabetes, poorly controlled #Hyperglycemia #Pseudo hyponatremia-resolved #Electrolyte abnormalities #Hypomagnesium #Hypertriglyceridemia #Peripheral artery disease The patient's management plan was discussed with my attending physician Dr. Burgos. Christina Fonseca MD, PGY-1 Time Spent with Patient Time attestation: Total time spent providing and/or coordinating discharge services: Time spent: Greater than 30 minutes Exam Vital Signs Temp Pulse Resp BP Pulse Ox O2 Del Method O2 Flow Rate 97.2 F 82 14 124/91 H 93 L Room Air 2 01/07/25 07:30 01/07/25 07:30 01/07/25 07:30 01/07/25 07:30 01/07/25 07:30 01/07/25 07:30 01/05/25 15:34 Narrative Exam General: Mild agged female, Awake and in no acute distress. Conversational and non-toxic appearing. HEENT: Normocephalic, atraumatic, mucous membranes moist, no teeth Heart: Regular rate and rhythm, no murmurs. Lungs: Clear to auscultation with no wheezing or crackles. Abdomen: Soft, nondistended, nontender, positive bowel sounds. ?No guarding or rebound tenderness. Neurologic: Alert and oriented x3, no gross neurological deficit, and patient able to move all 4 extremities. Extremities: Erythema, edema on the dorsum of the left foot in the base of the toes. Superficial wound in the 2nd toe, pustular drainage. Difficulty palpating pedal pulses. Skin: No rash or ecchymoses. Discharge Plan Plan Patient Disposition: HOME (Self Care) Disposition Comment: Stable and improved. Patient condition on transfer: Stable Prescriptions/Referrals Prescriptions/Med Rec: New insulin glargine 100 unit/mL (3 mL) insulin pen 15 unit subcut QPM 30 Days Qty: 4.5 0RF insulin lispro 100 unit/mL insulin pen 5 unit subcut TID 30 Days Qty: 4.5 0RF clopidogrel [Plavix] 75 mg tablet 75 mg PO QDAY 30 Days Qty: 30 0RF atorvastatin 40 mg tablet 40 mg PO QPM Qty: 30 0RF clindamycin HCl 300 mg capsule 300 mg PO Q6H 7 Days Qty: 28 0RF (DME) FreeStyle Fabien 3 Plus Sensor Device See Rx Instructions .Route Qty: 2 3RF Rx Instructions: Apply once every 15 days. (DME) FreeStyle Fabien 3 [place] Misc See Rx Instructions .Route Qty: 1 0RF Rx Instructions: As directed Discontinued Metformin Hcl (Metformin Hydrochloride) 500 GM crystals 500 tab PO BID Qty: 120 0RF albuterol sulfate [ProAir HFA] 90 mcg/actuation HFA aerosol inhaler 2 puff IH QID PRN (Reason: shortness of breath or wheezing) Qty: 18 0RF sulfamethoxazole-trimethoprim [Bactrim DS] 800-160 mg tablet 1 tab PO BID Qty: 14 0RF acetaminophen 650 mg tablet extended release 650 mg PO Q8H PRN (Reason: fever or pain) Qty: 30 0RF Rx Instructions: swallow whole; do not chew/break/dissolve/open ibuprofen 600 mg tablet 600 mg PO Q8H PRN (Reason: fever or pain) Qty: 30 0RF Referrals: Luigi Morris MD [Primary Care Provider] - Patient/Caregiver Discharge Instructions Discharge Activity: activity as tolerated Other Discharge Activity Instructions:: Take clindamycin 300 mg every 6 hours for 5 days to complete treatment for your infection. Continue atorvastatin and Plavix daily for peripheral arterial disease. Follow- up with vascular surgery. Take insulin Lantus 15 units every night and lispro 5 units 3 times a day with meals Follow-up with primary care physician in 1 week Follow-up with primary care physician in 1 week to optimize diabetes regimen. You can also follow-up in [facility] in 1 to 2 weeks. Call [phone] to make an appointment Address: [facility], [address], [address], [place], [address] Return to ED if symptoms return or worsen. Other Discharge Diet Instructions: Low carbohydrate diet Education Materials: Diabetes and Kidney Disease, Diabetes Exercise Plan, Diabetes PAD, Diabetes and High Blood Pressure Print Language: Vietnamese Stand Alone Forms: Yoselin Award Info., Patient Portal Info Letter Discharge Order Discharge Orders: Discharge (Routine); Ordered 01/07/25 Ordered By: Monalisa Jalloh Quality Discharge Quality Measures VTE prophylaxis MD Attestestation MD Attestation I reviewed labs, imaging, EKG, home medications and prior available records. Face to face evaluation was performed by me. I have personally examined the patient and discussed assessment and plan with the IM team. I reviewed the resident note and agree with the plan with exceptions as below. Left second toe cellulitis Insulin-dependent diabetes mellitus, type II, uncontrolled Lactic acidosis Hypertriglyceridemia Methamphetamine abuse PAD Started IV vancomycin/Zosyn. Transition to p.o. clindamycin upon discharge Follow-up wound and blood cultures: Wound culture is growing gram-positive cocci Continue wound care. Outpatient follow-up with the wound care center Consulted general surgery: S/p incision and drainage on 01/05 Follow-up with general surgery in 1 week Avoid methamphetamine use Continue insulin glargine plus lispro with meals. Monitor fingersticks. Outpatient follow-up for possible adjustment Diabetes education Trend lactic acid: Down trended and normalized Arterial duplex showed significant peripheral vascular disease. Ordered CTA aortic/lower extremity: Showed moderate stenosis Started atorvastatin Started Plavix Outpatient follow-up with vascular surgery Time spent is 40 minutes. More than 50% of the time was spent on patient education and coordination of care.
[2025-01-07 11:56] VITALS: BP 124/88; PULSE 88; RESP 15; TEMP 36.9; O2SAT 92
== END 2025-01-07 12:35 | disposition home or self-care (01) | DRG 197 ==
LOC: SERX 01-04 01:00 → SERHOLD 01-05 06:19 → S3SX 01-05 06:19
PROVIDERS: Physician Assistant; Surgery; Admitting Provider Internal Medicine; Emergency Provider Emergency Medicine; PCP Family Medicine; Visit Provider Student in an Organized Health Care Education/Training Program
PROC: 0JBR0ZZ Excision of Left Foot Subcutaneous Tissue and Fascia, Open Approach (ICD-10-PCS; principal; 2025-01-05 13:45)
DX: E11.52 Type 2 diabetes mellitus with diabetic peripheral angiopathy with gangrene (principal); E11.628 Type 2 diabetes mellitus with other skin complications; E11.65 Type 2 diabetes mellitus with hyperglycemia; I10 Essential (primary) hypertension; L02.612 Cutaneous abscess of left foot; F15.10 Other stimulant abuse, uncomplicated; E11.40 Type 2 diabetes mellitus with diabetic neuropathy, unspecified; E78.1 Pure hyperglyceridemia; E83.42 Hypomagnesemia; L03.032 Cellulitis of left toe; E87.20 Acidosis, unspecified; Z79.4 Long term (current) use of insulin; Z91.148 Patient's other noncompliance with medication regimen for other reason
CPT/HCPCS: 36415; 36600; 71046; 73630; 73706; 75635; 80053; 80061; 80202; 80307; 81001; 81025; 82010; 82803; 83036; 83605; 83615; 83690; 83735; 83880; 84100; 84145; 84484; 84703; 85025; 85610; 85652; 85730; 86140; 87040; 87070; 87075; 87077; 87086; 87186; 87205; 93005; 93925; 96365; 96366; 97162; 99285; A4217; A4649; J1643; J1815; J2250; J2270; J2543; J2704; J2795; J3370; J3475; J7120; Q9967; A9270

== ENCOUNTER → 2025-01-13 | Outpatient (CLI) | payer MEDICAID, SELFPAY | END | disposition home or self-care (01) | PROVIDERS: Visit Provider Surgery | DX: E11.621 Type 2 diabetes mellitus with foot ulcer (principal); L97.522 Non-pressure chronic ulcer of other part of left foot with fat layer exposed; I10 Essential (primary) hypertension; E11.40 Type 2 diabetes mellitus with diabetic neuropathy, unspecified; F41.9 Anxiety disorder, unspecified; F50.89 Other specified eating disorder; Z79.4 Long term (current) use of insulin; F15.10 Other stimulant abuse, uncomplicated | CPT/HCPCS: 11042; 99213; A9270; G0463 ==

== ENCOUNTER → 2025-01-27 | Outpatient (CLI) | payer MEDICAID, SELFPAY | END | disposition home or self-care (01) | LOC: SWHD 09:32 | PROVIDERS: PCP Family Medicine; Referring Provider Family Medicine; Visit Provider Student in an Organized Health Care Education/Training Program | DX: E11.621 Type 2 diabetes mellitus with foot ulcer (principal); L97.526 Non-pressure chronic ulcer of other part of left foot with bone involvement without evidence of necrosis; I10 Essential (primary) hypertension; E11.40 Type 2 diabetes mellitus with diabetic neuropathy, unspecified; F41.9 Anxiety disorder, unspecified; F50.89 Other specified eating disorder; Z79.4 Long term (current) use of insulin; F15.10 Other stimulant abuse, uncomplicated | CPT/HCPCS: 11044; A9270 ==

== ENCOUNTER → 2025-02-10 | Outpatient (CLI) | payer MEDICAID, SELFPAY | END | disposition home or self-care (01) | LOC: SWHD 13:38 | PROVIDERS: PCP Family Medicine; Referring Provider Family Medicine; Visit Provider Student in an Organized Health Care Education/Training Program | DX: E11.621 Type 2 diabetes mellitus with foot ulcer (principal); L97.525 Non-pressure chronic ulcer of other part of left foot with muscle involvement without evidence of necrosis; I10 Essential (primary) hypertension; E11.40 Type 2 diabetes mellitus with diabetic neuropathy, unspecified; F41.9 Anxiety disorder, unspecified; F50.89 Other specified eating disorder; Z79.4 Long term (current) use of insulin; F15.10 Other stimulant abuse, uncomplicated | CPT/HCPCS: 11042; A9270 ==

== ENCOUNTER → 2025-02-24 | Outpatient (CLI) | payer MEDICAID, SELFPAY | END | disposition home or self-care (01) | LOC: SWHD 09:23 | PROVIDERS: PCP Family Medicine; Referring Provider Family Medicine; Visit Provider Student in an Organized Health Care Education/Training Program | DX: E11.621 Type 2 diabetes mellitus with foot ulcer (principal); L97.526 Non-pressure chronic ulcer of other part of left foot with bone involvement without evidence of necrosis; S90.425A Blister (nonthermal), left lesser toe(s), initial encounter; X58.XXXA Exposure to other specified factors, initial encounter; I10 Essential (primary) hypertension; E11.40 Type 2 diabetes mellitus with diabetic neuropathy, unspecified; F41.9 Anxiety disorder, unspecified; F50.89 Other specified eating disorder; Z79.4 Long term (current) use of insulin; F15.10 Other stimulant abuse, uncomplicated | CPT/HCPCS: 11042; A9270 ==

== ENCOUNTER → 2025-03-10 | Outpatient (CLI) | payer MEDICAID, SELFPAY | END | disposition home or self-care (01) | PROVIDERS: PCP Family Medicine; Referring Provider Family Medicine; Visit Provider Student in an Organized Health Care Education/Training Program | DX: E11.621 Type 2 diabetes mellitus with foot ulcer (principal); L97.522 Non-pressure chronic ulcer of other part of left foot with fat layer exposed; I10 Essential (primary) hypertension; E11.40 Type 2 diabetes mellitus with diabetic neuropathy, unspecified; F41.9 Anxiety disorder, unspecified; F50.89 Other specified eating disorder; Z79.4 Long term (current) use of insulin; F15.10 Other stimulant abuse, uncomplicated | CPT/HCPCS: 11044; A9270 ==

== ENCOUNTER → 2025-03-24 | Outpatient (CLI) | payer MEDICAID, SELFPAY | END | disposition home or self-care (01) | LOC: SWHD 14:03 | PROVIDERS: PCP Family Medicine; Referring Provider Family Medicine; Visit Provider Student in an Organized Health Care Education/Training Program | DX: E11.621 Type 2 diabetes mellitus with foot ulcer (principal); L97.522 Non-pressure chronic ulcer of other part of left foot with fat layer exposed; I10 Essential (primary) hypertension; E11.40 Type 2 diabetes mellitus with diabetic neuropathy, unspecified; F41.9 Anxiety disorder, unspecified; F50.89 Other specified eating disorder; Z79.4 Long term (current) use of insulin; F15.10 Other stimulant abuse, uncomplicated | CPT/HCPCS: 97597; A9270 ==

== ENCOUNTER → 2025-04-21 | Outpatient (CLI) | payer MEDICAID, SELFPAY | END | disposition home or self-care (01) | LOC: SWHD 09:34 | PROVIDERS: PCP Family Medicine; Referring Provider Family Medicine; Visit Provider Student in an Organized Health Care Education/Training Program | DX: E11.621 Type 2 diabetes mellitus with foot ulcer (principal); L97.522 Non-pressure chronic ulcer of other part of left foot with fat layer exposed; E11.40 Type 2 diabetes mellitus with diabetic neuropathy, unspecified; F41.9 Anxiety disorder, unspecified; F50.89 Other specified eating disorder; F15.10 Other stimulant abuse, uncomplicated; I10 Essential (primary) hypertension | CPT/HCPCS: 11042; A9270 ==

== ENCOUNTER → 2025-06-02 | Outpatient (CLI) | payer MEDICAID, SELFPAY | END | disposition home or self-care (01) | LOC: SWHD 13:59 | PROVIDERS: PCP Family Medicine; Referring Provider Family Medicine; Visit Provider Student in an Organized Health Care Education/Training Program | DX: E11.621 Type 2 diabetes mellitus with foot ulcer (principal); L97.522 Non-pressure chronic ulcer of other part of left foot with fat layer exposed; E11.40 Type 2 diabetes mellitus with diabetic neuropathy, unspecified; F41.9 Anxiety disorder, unspecified | CPT/HCPCS: 99212; G0463 ==